=== PATIENT | female | born 1930 | race Caucasian/White ===

== ENCOUNTER 2017-01-26 21:46 | Inpatient (IN) | payer MEDICARE, OTHER ==
[~2017-01-26] VITALS: Ht 154.9 cm; Wt 54.0 kg
[~2017-01-26 21:46] MED LIST: ACET-2047 PO; ALLO100T PO; ASCO500C7 PO; BISA10SU58 PR; CITRACAL PO; CRAN3875 PO; DOCU-159 PO; FOLI-49 PO; LEVO100T87 PO; LYRI25 PO; MAGN400O4 PO; METO-448 PO; MIRT15TA PO; MULT-552 PO; NA P118E PR; PANT40TA4 PO
[2017-01-26 23:19] LABS: ABNORMAL IP MESSAGE 1; EOSINOPHILS # 0.1 10^3/ul (0.0-0.5); EOSINOPHILS % 1.6 % (0.0-7.0); HEMATOCRIT 22.8 % (37.0-47.0); HEMOGLOBIN 7.3 g/dl (12.0-16.0); LYMPHOCYTES # 0.8 10^3/ul (0.8-2.9); LYMPHOCYTES % 24.9 % (15.0-51.0); MEAN CORPUSCULAR HEMOGLOBIN 30.9 pg (29.0-33.0); MEAN CORPUSCULAR VOLUME 96.6 fl (82.0-101.0); MEAN PLATELET VOLUME 12.4 fl (7.4-10.4); MONOCYTE # 0.2 10^3/ul (0.3-0.9); MONOCYTES % 6.2 % (0.0-11.0); PLATELET COUNT 66 10^3/UL (140-415); POSITIVE DIFF @See below; RED BLOOD COUNT 2.36 10^6/ul (4.20-5.40); RED CELL DISTRIBUTION WIDTH 19.8 % (11.5-14.5); WHITE BLOOD COUNT 3.1 10^3/ul (4.8-10.8)
--- NOTE | 2017-01-26 23:26 | RADRPT ---
PROCEDURE: CHEST - 1 VIEW CLINICAL INDICATION: 86-year-old female with shortness of breath and sepsis. TECHNIQUE: A single frontal AP semi-erect view of the chest was performed. The images were review ed on a PACS workstation. COMPARISON: CR CHEST 02/21/2015; CR CHEST 02/17/2015 FINDINGS: There is a left-sided single lead pacemaker. The cardiomediastinal silhouette is markedly enlarged b ut without significant interval change. The thoracic aortic arch is calcified. Chronic lung changes are present. There is mild right pleural effusion. There is persistent right mid/lower lung zone con solidation. There is no evidence for congestive heart failure. There is no evidence for pneumothorax . Old bilateral humeral neck deformities are seen from prior fractures. IMPRESSION: 1. Left-sided pacemaker. 2. Cardiomegaly. 3. Calcified thoracic aortic arch. 4. Chronic lung changes. 5. Bbyw-ga-nmmnhpnt right pleural effusion. 6. Persistent right mid/lower lung zone consolidation without significant interval change. 7. 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 .Rui Garcia MD, MD Date Time Electronically viewed and signed by .Rui Garcia MD, on 01/26/2017 23:26 .M/
[2017-01-26 23:36] LABS: INR 1.08; PROTIME 14.1 Sec (11.9-14.9); PT RATIO 1.1
[2017-01-26 23:37] LABS: ALANINE AMINOTRANSFERASE 32 IU/L (13-69); ALBUMIN 2.8 g/dl (3.3-4.9); ALBUMIN/GLOBULIN RATIO 0.84; ALKALINE PHOSPHATASE 144 IU/L (42-121); ANION GAP 14 (8-16); ASPARTATE AMINO TRANSFERASE 28 IU/L (15-46); BILIRUBIN,INDIRECT 0.3 mg/dl (0-1.1); BILIRUBIN,TOTAL 0.3 mg/dl (0.2-1.3); BLOOD UREA NITROGEN 67 mg/dl (7-20); CARBON DIOXIDE 24 mmol/L (21-31); CHLORIDE 100 mmol/L (97-110); GLUCOSE 121 mg/dl (70-220); PARTIAL THROMBOPLASTIN TIME 41.1 Sec (25.0-35.0); SODIUM 132 mmol/L (135-144); TOTAL PROTEIN 6.1 g/dl (6.1-8.1)
[2017-01-26 23:45] LABS: POTASSIUM 6.2 mmol/L (3.5-5.1)
[2017-01-26 23:48] LABS: TROPONIN-I < 0.012 ng/ml (0.00-0.12)
[2017-01-27] VITALS (11 sets, daily range): BP systolic 104–141; BP diastolic 53–65; PULSE 60–89; RESP 19–21; TEMP 98; Ht 154.9 cm; Wt 54.0 kg
[2017-01-27] MEDS ORDERED: VANCOMYCIN 1 GM (PMX) 250 ML IVPB STA (00:39)
[2017-01-27] MEDS ORDERED: AZTREONAM 1 GM/NS (PMX) 50 ML IVPB STA (00:39)
[2017-01-27] MEDS ORDERED: NA POLYST SULFON 15 GM/60 ML BTL PO ONE (01:00)
--- NOTE | 2017-01-27 02:15 | ERD ---
ER Documentation Chief Complaint Chief Complaint HEMANT [id number],from [facility],low O2 sat 90% RA HPI This is an 78-year-old female brought in by rescue from [facility] of her low O2 saturations were 90% on room air. Patient herself cannot provide any relevant history second baseline dementia. History is per EMS run sheet. ROS All systems reviewed and are negative except as per history of present illness. Medications Home Meds Reported Medications Calcium Citrate* (Citracal*) 950 Mg Tab, 950 MG PO DAILY, TAB 02/17/15 Metoprolol Tartrate* (Lopressor*) 25 Mg Tab, 12.5 MG PO DAILY, TAB HOLD IF SBP<110 02/17/15 Cran/Vitc/Mannose/Inulin/Brom (Uti-Stat Liquid) 3,875 Mg/30 Ml Liquid, 3875 MG PO DAILY 02/17/15 Multivitamins* (Once Daily*) 1 Tab Tablet, 1 TAB PO DAILY, TAB 02/17/15 Pregabalin* (Lyrica*) 25 Mg Capsule, 25 MG PO DAILY, CAP 02/17/15 Pantoprazole* (Pantoprazole*) 40 Mg Tablet.dr, 40 MG PO AC BREAKFAST, TAB 02/17/15 Mirtazapine* (Remeron*) 15 Mg Tablet, 15 MG PO HS, TAB 02/17/15 Levothyroxine Sodium* (Levothyroxine Sodium*) 100 Mcg Tablet, 100 MCG PO BEFORE BREAKFAST, #30 TAB 02/17/15 Folic Acid* (Folic Acid*) 1 Mg Tablet, 1 MG PO DAILY, TAB 02/17/15 Docusate Sodium* (Docusate Sodium*) 100 Mg Capsule, 100 MG PO BID Y for CONSTIPATION, #60 CAP 02/17/15 Ascorbic Acid* (Vitamin C*) 500 Mg Capsule.sa, 500 MG PO DAILY, CAP 02/17/15 Allopurinol* (Allopurinol*) 100 Mg Tablet, 100 MG PO DAILY, TAB 02/17/15 Acetaminophen* (Acetaminophen*) 650 Mg Tablet, 650 MG PO Q4 Y for PAIN AND OR ELEVATED TEMP, #30 TAB 02/17/15 Na Phos,M-B/Na Phos,Di-Ba* (Fleet* Enema) 118 Ml Enema, 118 ML OK Q48H Y for CONSTIPATION, ENEMA 02/17/15 Bisacodyl* (Dulcolax*) 10 Mg/Supp.rect Supp.rect, 10 MG OK Q48 Y for CONSTIPATION, SUPP.RECT 02/17/15 Magnesium Hydroxide* (Milk Of Magnesia*) 400 Mg/5 Ml Oral.susp, 30 ML PO QHS, ML 02/17/15 Allergies Allergies: Coded Allergies: Penicillins (Verified Allergy, Unknown, 02/18/15) Sulfa (Sulfonamide Antibiotics) (Verified Allergy, Unknown, 02/18/15) amoxicillin (Verified Allergy, Unknown, 02/18/15) PMhx/Soc History of Surgery: Yes (pacemaker) Hx Neurological Disorder: No Hx Respiratory Disorders: Yes (COPD,pleural effusion) Hx Cardiac Disorders: Yes (HF,hyperlipidemia,angina pectoris) Hx Psychiatric Problems: Yes (depression,psychosis,dementia) Hx Alcohol Use: No Hx Substance Use: No Hx Tobacco Use: No Smoking Status: Unknown if ever smoked Physical Exam Vitals Vital Signs Date Time Temp Pulse Resp B/P Pulse Ox O2 Delivery O2 Flow Rate FiO2 01/27/17 00:00 60 21 107/60 100 Nasal Cannula 2.0 01/26/17 23:02 60 110/68 99 Nasal Cannula 2.0 01/26/17 22:04 60 24 117/55 100 Nasal Cannula 2.0 01/26/17 21:50 98.0 60 18 177/55 97 Room Air 01/26/17 21:48 98.0 67 18 133/69 99 Physical Exam Const: [] Head: Atraumatic Eyes: Normal Conjunctiva ENT: Normal External Ears, Nose and Mouth. Neck: Full range of motion..~ No meningismus. Resp: Clear to auscultation bilaterally Cardio: Regular rate and rhythm, no murmurs Abd: Soft, non tender, non distended. Normal bowel sounds Skin: No petechiae or rashes Back: No midline or flank tenderness Ext: No cyanosis, or edema Neur: Awake and alert Psych: Normal Mood and Affect Result Diagram: 01/26/17224401/26/172244 Results 24 hrs Laboratory Tests Test 01/26/17 22:45 01/27/17 00:39 White Blood Count 3.110^3/ul Red Blood Count 2.3610^6/ul Hemoglobin 7.3g/dl Hematocrit 22.8% Mean Corpuscular Volume 96.6fl Mean Corpuscular Hemoglobin 30.9pg Mean Corpuscular Hemoglobin Concent 32.0g/dl Red Cell Distribution Width 19.8% Platelet Count 6610^3/UL Mean Platelet Volume 12.4fl Neutrophils % 67.0% Lymphocytes % 24.9% Monocytes % 6.2% Eosinophils % 1.6% Basophils % 0.0% Nucleated Red Blood Cells % 0.0/100WBC Neutrophils # 2.010^3/ul Lymphocytes # 0.810^3/ul Monocytes # 0.210^3/ul Eosinophils # 0.110^3/ul Basophils # 0.010^3/ul Nucleated Red Blood Cells # 0.010^3/ul Prothrombin Time 14.1Sec Prothrombin Time Ratio 1.1 INR International Normalized Ratio 1.08 Activated Partial Thromboplast Time 41.1Sec Sodium Level 132mmol/L Potassium Level 6.2mmol/L Chloride Level 100mmol/L Carbon Dioxide Level 24mmol/L Anion Gap 14 Blood Urea Nitrogen 67mg/dl Creatinine 1.90mg/dl Glucose Level 121mg/dl Lactic Acid Level 2.0mmol/L 1.1mmol/L Calcium Level 9.0mg/dl Total Bilirubin 0.3mg/dl Direct Bilirubin 0.00mg/dl Indirect Bilirubin 0.3mg/dl Aspartate Amino Transf (AST/SGOT) 28IU/L Alanine Aminotransferase (ALT/SGPT) 32IU/L Alkaline Phosphatase 144IU/L Troponin I < 0.012ng/ml Total Protein 6.1g/dl Albumin 2.8g/dl Globulin 3.30g/dl Albumin/Globulin Ratio 0.84 Current Medications Medications (Trade) Dose Ordered Sig/Josh Route PRN Reason Start Time Stop Time Status Last Admin Dose Admin Vancomycin HCl 250 ml @ 125 mls/hr ONCE STAT IVPB 01/27/17 00:39 01/27/17 02:38 01/27/17 01:41 Aztreonam (Azactam 1gm/NS (Pmx)) 50 ml @ 100 mls/hr ONCE STAT IVPB 01/27/17 00:39 01/27/17 01:08 DC 01/27/17 01:05 Sodium Polystyrene Sulfonate (Kayexalate) 60 gm ONCE ONCE PO 01/27/17 01:00 01/27/17 01:01 DC Procedures/MDM EKG: Rate/Rhythm: [Normal Sinus Rhythm] QRS, ST, T-waves: [No changes consistent w/ acute ischemia] Impression: [No evidence of ischemia or arrhythmia] Chest X-ray 1V Interpreted by me: Soft Tissue: No acute abnormalities Bones: No acute abnormalities Mediastinum/Cardiac Silhouette/Lungs: Right lower lobe pneumonia Medical decision-makin-year-old female with hyperkalemia, anemia, pneumonia. Start antibiotics. Given fluids for hyperkalemia. No EKG changes. Patient be admitted to Dr Goodrich. Departure Diagnosis: Primary Impression: Pneumonia Pneumonia type: due to unspecified organism Laterality: unspecified laterality Lung location: unspecified part of lung Qualified Code: J18.9 - Pneumonia due to infectious organism, unspecified laterality, unspecified part of lung Condition: Serious KAYLEEN CROSS Jan 27, 2017 02:15
[2017-01-27] MEDS ORDERED: SOD CHLORIDE 0.9% 1,000 ML IV ONE (02:30)
[2017-01-27] MEDS ORDERED: SOD CHLORIDE 0.9% 250 ML IV* ONE (04:48)
[2017-01-27] MEDS ORDERED: ACETAMINOPHEN 325 MG TAB PO PRN (05:00)
[2017-01-27] MEDS ORDERED: DOCUSATE SODIUM 100 MG CAP PO PRN (05:00)
[2017-01-27 06:29] LABS: ABNORMAL IP MESSAGE 1; EOSINOPHILS % 0.2 % (0.0-7.0); HEMATOCRIT 22.2 % (37.0-47.0); HEMOGLOBIN 7.3 g/dl (12.0-16.0); LYMPHOCYTES # 0.6 10^3/ul (0.8-2.9); LYMPHOCYTES % 12.1 % (15.0-51.0); MEAN CORPUSCULAR HEMOGLOBIN 31.7 pg (29.0-33.0); MEAN CORPUSCULAR HGB CONC 32.9 g/dl (32.0-37.0); MEAN CORPUSCULAR VOLUME 96.5 fl (82.0-101.0); MEAN PLATELET VOLUME 11.7 fl (7.4-10.4); MONOCYTE # 0.3 10^3/ul (0.3-0.9); NEUTROPHIL # 3.7 10^3/ul (1.6-7.5); NEUTROPHILS % 81.3 % (39.0-77.0); PLATELET COUNT 60 10^3/UL (140-415); RED CELL DISTRIBUTION WIDTH 19.6 % (11.5-14.5); WHITE BLOOD COUNT 4.5 10^3/ul (4.8-10.8)
[2017-01-27] MEDS ORDERED: PENDING SANTYL ORDER FOR WOUND CARE XX PRN (06:30)
[2017-01-27 06:36] LABS: POSITIVE DIFF @See below
[2017-01-27] MEDS: DEXTROSE 5%-0.9% NACL 1,000 ML IV SCH (06:41)
[2017-01-27 07:01] LABS: CALCIUM 8.5 mg/dl (8.4-10.2); CREATININE 1.81 mg/dl (0.44-1.00)
[2017-01-27 07:09] LABS: POTASSIUM 6.2 mmol/L (3.5-5.1)
[2017-01-27] MEDS: LEVOTHYROXINE 100 MCG TAB PO SCH (08:09)
[2017-01-27] MEDS: FOLIC ACID 1 MG TAB PO SCH (08:09)
[2017-01-27] MEDS: PANTOPRAZOLE (EC) 40 MG TAB PO SCH (08:09)
[2017-01-27] MEDS: METOPROLOL 25 MG TAB PO SCH (08:09)
[2017-01-27] MEDS: ALLOPURINOL 100 MG TAB PO SCH (08:09)
[2017-01-27] MEDS: PREGABALIN 25 MG CAP PO SCH (08:09)
[2017-01-27] MEDS ORDERED: NA POLYST SULFON 15 GM/60 ML BTL PO SCH (09:00)
[2017-01-27] MEDS ORDERED: NON-FORMULARY/PATIENT OWN MED (Cran/Vitc/Mannose/Inulin/Brom (Uti-Stat Liquid) 3,875 MG) PO SCH (09:00)
--- NOTE | 2017-01-27 10:07 | CONS ---
Date/Time of Note Date/Time of Note DATE: 01/27/17 TIME: 10:04 Assessment/Plan Assessment/Plan Chief Complaint/Hosp Course - ACUTE KIDNEY INJURY - CHRONIC KIDNEY DISEASE - ACUTE HYPERKALEMIA - ACUTE vs CHRONIC ANEMIA - CAD / CHF / POST PACER - HIGH CHOLESTEROL - HYPOTHYROID - PANCYTOPENIA - SEPSIS / PNEUMONIA - MODERATE PLEURAL EFFUSION PLAN: - MARIA L secondary to decrease renal perfusion & ATN possible due to sepsis/ pneumonia - Acute Hyperkalemia secondary to above - So far she refused her Kayexalate PO - She is receiving PRBC 1 unit now ( which may increase her K+ as well ) - 1 Amp D50 - 10 units regular insulin IV x 1 - 1 Amp Bicarb. - IVF gentle - Recheck K+ at 12 PM & if K>5.7 then 30 Grams Kayexalate rectally since she is refusing PO - Work up for pancytopenia - Continue with IV Antibiotics - Start IV Iron - Start EPOGEN - Check Iron status THANK YOU VSharon MUCH Problems: Consultation Date/Type/Reason Admit Date/Time Jan 27, 2017 at 00:49 Date of Consultation: Jan 27, 2017 Type of Consultation: NEPHROLOGY Reason for Consultation - ACUTE KIDNEY INJURY - CHRONIC KIDNEY DISEASE - ACUTE HYPERKALEMIA - ACUTE ANEMIA Hx of Present Illness This is an 78-year-old female brought in by rescue from [place] [email or web address] of her low O2 saturations were 90% on room air. Patient herself cannot provide any relevant history second baseline dementia. Subjective hx not possible: pt non-verbal Constitutional: no complaints Eyes: no complaints ENT: no complaints Respiratory: no complaints Cardiovascular: no complaints Gastrointestinal: no complaints Genitourinary: no complaints Musculoskeletal: no complaints Skin: no complaints Past Medical History Medical History: congestive heart failure, coronary artery disease, high cholesterol, hypertension, renal disease Past Surgical History Past Surgical Hx: noncontributory Family History Significant Family History: no pertinent family hx Social History Alcohol Use: none Smoking Status: Never smoker Drug Use: none Exam/Review of Systems Vital Signs Vitals Vital Signs Date Time Temp Pulse Resp B/P Pulse Ox O2 Delivery O2 Flow Rate FiO2 01/27/17 08:24 60 01/27/17 07:37 97.4 20 141/65 97 01/27/17 05:11 Nasal Cannula 2.0 Exam Constitutional: non-verbal Psych: no complaints Head: normocephalic Respiratory: crackles/rales Cardiovascular: diastolic murmur, edema, systolic murmur Gastrointestinal: soft Results Result Diagram: 01/27/17 0609 01/27/17 0609 Results 24 hrs Laboratory Tests Test 01/26/17 22:45 01/27/17 00:39 01/27/17 02:00 01/27/17 02:40 White Blood Count 3.1 L Red Blood Count 2.36 #L Hemoglobin 7.3 #L Hematocrit 22.8 #L Mean Corpuscular Volume 96.6 Mean Corpuscular Hemoglobin 30.9 Mean Corpuscular Hemoglobin Concent 32.0 Red Cell Distribution Width 19.8 H Platelet Count 66 L Mean Platelet Volume 12.4 #H Neutrophils % 67.0 Lymphocytes % 24.9 Monocytes % 6.2 Eosinophils % 1.6 Basophils % 0.0 Nucleated Red Blood Cells % 0.0 Neutrophils # 2.0 Lymphocytes # 0.8 Monocytes # 0.2 L Eosinophils # 0.1 Basophils # 0.0 Nucleated Red Blood Cells # 0.0 Prothrombin Time 14.1 Prothrombin Time Ratio 1.1 INR International Normalized Ratio 1.08 Activated Partial Thromboplast Time 41.1 H Sodium Level 132 L Potassium Level 6.2 *H 6.4 *H Chloride Level 100 Carbon Dioxide Level 24 Anion Gap 14 Blood Urea Nitrogen 67 H Creatinine 1.90 H Glucose Level 121 Lactic Acid Level 2.0 1.1 1.0 Calcium Level 9.0 Total Bilirubin 0.3 Direct Bilirubin 0.00 Indirect Bilirubin 0.3 Aspartate Amino Transf (AST/SGOT) 28 Alanine Aminotransferase (ALT/SGPT) 32 Alkaline Phosphatase 144 H Troponin I < 0.012 Total Protein 6.1 Albumin 2.8 L Globulin 3.30 H Albumin/Globulin Ratio 0.84 Test 01/27/17 06:09 White Blood Count 4.5 #L Red Blood Count 2.30 L Hemoglobin 7.3 L Hematocrit 22.2 L Mean Corpuscular Volume 96.5 Mean Corpuscular Hemoglobin 31.7 Mean Corpuscular Hemoglobin Concent 32.9 Red Cell Distribution Width 19.6 H Platelet Count 60 L Mean Platelet Volume 11.7 H Neutrophils % 81.3 H Lymphocytes % 12.1 L Monocytes % 6.0 Eosinophils % 0.2 Basophils % 0.0 Nucleated Red Blood Cells % 0.0 Neutrophils # 3.7 Lymphocytes # 0.6 L Monocytes # 0.3 Eosinophils # 0.0 Basophils # 0.0 Nucleated Red Blood Cells # 0.0 Sodium Level 132 L Potassium Level 6.2 *H Chloride Level 102 Carbon Dioxide Level 23 Anion Gap 13 Blood Urea Nitrogen 68 H Creatinine 1.81 H Glucose Level 113 Calcium Level 8.5 Medications Medications Current Medications Acetaminophen (Tylenol Tab) 650 mg Q4 PRN PO PAIN AND OR ELEVATED TEMP; Start 01/27/17 at 05:00 Allopurinol (Zyloprim) 100 mg DAILY PO Last administered on 01/27/17 08:09; Admin Dose 100 MG; Start 01/27/17 at 09:00 Docusate Sodium (Colace) 100 mg BID PRN PO CONSTIPATION; Start 01/27/17 at 05: 00 Folic Acid (Folic Acid) 1 mg DAILY PO Last administered on 01/27/17 08:09; Admin Dose 1 MG; Start 01/27/17 at 09:00 Magnesium Hydroxide (Milk Of Mag) 30 ml QHS PO ; Start 01/27/17 at 21:00 Metoprolol Tartrate (Lopressor) 12.5 mg DAILY PO Last administered on 08:09; Admin Dose 12.5 MG; Start 01/27/17 at 09:00 Mirtazapine (Remeron) 15 mg HS PO ; Start 01/27/17 at 21:00 Pregabalin 25 mg 25 mg DAILY PO Last administered on 01/27/17 08:09; Admin Dose 25 MG; Start 01/27/17 at 09:00 Dextrose/Sodium Chloride (D5-NS) 1,000 ml @ 50 mls/hr Q20H IV Last administered on 01/27/17 06:41; Admin Dose 50 MLS/HR; Start 01/27/17 at 05:00 Sodium Polystyrene Sulfonate (Kayexalate) 30 gm BID PO Last administered on 08:08; Admin Dose 30 GM; Start 01/27/17 at 09:00 Miscellaneous Information (Pending Santyl Order For Wound Care) This patient easley... PRN PRN XX WOUND CARE; Start 01/27/17 at 06:30 FERNANDA JASON MD Jan 27, 2017 10:07
[2017-01-27] MEDS ORDERED: NA BICARBONATE 8.4% 50 ML SYG IV ONE (10:30)
[2017-01-27] MEDS ORDERED: NA POLYST SULFON 15 GM/60 ML BTL PR ONE (10:30)
[2017-01-27] MEDS ORDERED: DEXTROSE 50% 50 ML SYRINGE IV ONE (10:30)
[2017-01-27] MEDS ORDERED: INSULIN REGULAR, HUMAN 100 UNIT/1 ML 3ML VIAL IV ONE (10:30)
[2017-01-27] MEDS ORDERED: EPOETIN ALFA (NESRD) 3,000 UNITS/ML VIAL SC SCH (11:30)
[2017-01-27] MEDS: SOD FERRIC GLUC COMPLX 125 MG in SOD CHLORIDE 0.9% 100 ML IVPB SCH (12:56)
[2017-01-27 15:25] LABS: CALCIUM 8.6 mg/dl (8.4-10.2); CREATININE 1.75 mg/dl (0.44-1.00); POTASSIUM 5.4 mmol/L (3.5-5.1)
--- NOTE | 2017-01-27 16:13 | CONS ---
Date/Time of Note Date/Time of Note DATE: 01/27/17 TIME: 16:06 Assessment/Plan Assessment/Plan Chief Complaint/Hosp Course - PANCYTOPENIA with anemia N- cytic and increased RDW PROCEED WITH W-UP OBTAIN ABD US PER OLD RECORD- PT HAS A CHRONIC STABLE LEUKOPENIA AND THROMBOCYTOPENIA IN THE SAME RANGE NOW SINCE E 12. 15 ( HER FIRST ADMISSION TO [facility]) H/H - NOW SL WORSE OBSERVE FOR BLEEDING AND HEMOLYSIS PRBC NEEDED - ACUTE KIDNEY INJURY - CHRONIC KIDNEY DISEASE - ACUTE HYPERKALEMIA - ACUTE vs CHRONIC ANEMIA - CAD / CHF / POST PACER - HIGH CHOLESTEROL - HYPOTHYROID - SEPSIS / PNEUMONIA - MODERATE PLEURAL EFFUSION Problems: Consultation Date/Type/Reason Admit Date/Time Jan 27, 2017 at 00:49 Date of Consultation: Jan 27, 2017 Type of Consultation: hemeonc Reason for Consultation anemia Referring Provider: LUZ MARIA HERNÁNDEZ MD Hx of Present Illness This is an 78-year-old female brought in by rescue from [facility] of her low O2 saturations were 90% on room air. Patient herself cannot provide any relevant history second baseline dementia. i was asked to provide hemeonc consult re pancytopenia with anemia, requiring PRBC transfusion Subjective hx not possible: pt non-verbal Constitutional: no complaints Eyes: no complaints ENT: no complaints Respiratory: no complaints Cardiovascular: no complaints Gastrointestinal: no complaints Genitourinary: no complaints Musculoskeletal: no complaints Skin: no complaints Past Medical History Medical History: congestive heart failure, coronary artery disease, high cholesterol, hypertension, renal disease Past Surgical History Past Surgical Hx: noncontributory Family History Significant Family History: no pertinent family hx Social History Alcohol Use: none Smoking Status: Never smoker Drug Use: none Past Medical History Medical History: congestive heart failure, coronary artery disease, high cholesterol, hypertension, renal disease Past Surgical History Past Surgical Hx: noncontributory Social History Alcohol Use: none Smoking Status: Never smoker Drug Use: none Exam/Review of Systems Vital Signs Vitals Vital Signs Date Time Temp Pulse Resp B/P Pulse Ox O2 Delivery O2 Flow Rate FiO2 01/27/17 15:44 97.3 60 20 104/53 96 01/27/17 09:00 Nasal Cannula 2.0 Exam Head: Atraumatic Eyes: Normal Conjunctiva ENT: Normal External Ears, Nose and Mouth. Neck: Full range of motion..~ No meningismus. Resp: Clear to auscultation bilaterally Cardio: Regular rate and rhythm, no murmurs Abd: Soft, non tender, non distended. Normal bowel sounds Skin: No petechiae or rashes Back: No midline or flank tenderness Ext: No cyanosis, or edema Neur: Awake and alert Psych: Normal Mood and Affect Results Result Diagram: 01/27/17 0609 01/27/17 1427 Results 24 hrs Laboratory Tests Test 01/26/17 22:45 01/27/17 00:39 01/27/17 02:00 01/27/17 02:40 White Blood Count 3.1 L Red Blood Count 2.36 #L Hemoglobin 7.3 #L Hematocrit 22.8 #L Mean Corpuscular Volume 96.6 Mean Corpuscular Hemoglobin 30.9 Mean Corpuscular Hemoglobin Concent 32.0 Red Cell Distribution Width 19.8 H Platelet Count 66 L Mean Platelet Volume 12.4 #H Neutrophils % 67.0 Lymphocytes % 24.9 Monocytes % 6.2 Eosinophils % 1.6 Basophils % 0.0 Nucleated Red Blood Cells % 0.0 Neutrophils # 2.0 Lymphocytes # 0.8 Monocytes # 0.2 L Eosinophils # 0.1 Basophils # 0.0 Nucleated Red Blood Cells # 0.0 Prothrombin Time 14.1 Prothrombin Time Ratio 1.1 INR International Normalized Ratio 1.08 Activated Partial Thromboplast Time 41.1 H Sodium Level 132 L Potassium Level 6.2 *H 6.4 *H Chloride Level 100 Carbon Dioxide Level 24 Anion Gap 14 Blood Urea Nitrogen 67 H Creatinine 1.90 H Glucose Level 121 Lactic Acid Level 2.0 1.1 1.0 Calcium Level 9.0 Total Bilirubin 0.3 Direct Bilirubin 0.00 Indirect Bilirubin 0.3 Aspartate Amino Transf (AST/SGOT) 28 Alanine Aminotransferase (ALT/SGPT) 32 Alkaline Phosphatase 144 H Troponin I < 0.012 Total Protein 6.1 Albumin 2.8 L Globulin 3.30 H Albumin/Globulin Ratio 0.84 Test 01/27/17 06:09 01/27/17 14:27 White Blood Count 4.5 #L Red Blood Count 2.30 L Hemoglobin 7.3 L Hematocrit 22.2 L Mean Corpuscular Volume 96.5 Mean Corpuscular Hemoglobin 31.7 Mean Corpuscular Hemoglobin Concent 32.9 Red Cell Distribution Width 19.6 H Platelet Count 60 L Mean Platelet Volume 11.7 H Neutrophils % 81.3 H Lymphocytes % 12.1 L Monocytes % 6.0 Eosinophils % 0.2 Basophils % 0.0 Nucleated Red Blood Cells % 0.0 Neutrophils # 3.7 Lymphocytes # 0.6 L Monocytes # 0.3 Eosinophils # 0.0 Basophils # 0.0 Nucleated Red Blood Cells # 0.0 Sodium Level 132 L 134 L Potassium Level 6.2 *H 5.4 H Chloride Level 102 104 Carbon Dioxide Level 23 21 Anion Gap 13 14 Blood Urea Nitrogen 68 H 68 H Creatinine 1.81 H 1.75 H Glucose Level 113 101 Calcium Level 8.5 8.6 Medications Medications Current Medications Acetaminophen (Tylenol Tab) 650 mg Q4 PRN PO PAIN AND OR ELEVATED TEMP; Start 01/27/17 at 05:00 Allopurinol (Zyloprim) 100 mg DAILY PO Last administered on 01/27/17 08:09; Admin Dose 100 MG; Start 01/27/17 at 09:00 Docusate Sodium (Colace) 100 mg BID PRN PO CONSTIPATION; Start 01/27/17 at 05: 00 Folic Acid (Folic Acid) 1 mg DAILY PO Last administered on 01/27/17 08:09; Admin Dose 1 MG; Start 01/27/17 at 09:00 Magnesium Hydroxide (Milk Of Mag) 30 ml QHS PO ; Start 01/27/17 at 21:00 Metoprolol Tartrate (Lopressor) 12.5 mg DAILY PO Last administered on 08:09; Admin Dose 12.5 MG; Start 01/27/17 at 09:00 Mirtazapine (Remeron) 15 mg HS PO ; Start 01/27/17 at 21:00 Pregabalin 25 mg 25 mg DAILY PO Last administered on 01/27/17 08:09; Admin Dose 25 MG; Start 01/27/17 at 09:00 Dextrose/Sodium Chloride (D5-NS) 1,000 ml @ 50 mls/hr Q20H IV Last administered on 01/27/17 06:41; Admin Dose 50 MLS/HR; Start 01/27/17 at 05:00 [facility] This patient easley... PRN PRN XX WOUND CARE; Start 01/27/17 at 06:30 Epoetin Rhys 6000 units 6,000 units ONCE SC Last administered on 01/27/17t 12: 56; Admin Dose 6,000 UNITS; Start 01/27/17 at 11:30; Stop 01/27/17 at 23:00 Ferric Sodium Gluconate Complex/ Sodium Chloride (Ferrlecit/NS) 110 ml @ 100 mls/hr Q24H IVPB Last administered on 01/27/17t 12:56; Admin Dose 100 MLS/HR; Start 01/27/17 at 12:00; Stop 01/29/17 at 13:05 Procedures Procedures [place] [address] Radiology Main Line: [phone] DIAGNOSTIC IMAGING REPORT Patient: ROBERT LYNN : 1930 Age: 86 Sex: F MR #: [id number] DOS: 01/26/17 2222 Ordering MD: KAYLEEN CROSS MD Location: E/R Room/Bed: PROCEDURE: CHEST - 1 VIEW CLINICAL INDICATION: 86-year-old female with shortness of breath and sepsis. TECHNIQUE: A single frontal AP semi-erect view of the chest was performed. The images were reviewed on a PACS workstation. COMPARISON: CR CHEST 02/21/2015; CR CHEST 02/17/2015 FINDINGS: There is a left-sided single lead pacemaker. The cardiomediastinal silhouette is markedly enlarged but without significant interval change. The thoracic aortic arch is calcified. Chronic lung changes are present. There is mild right pleural effusion. There is persistent right mid/lower lung zone consolidation. There is no evidence for congestive heart failure. There is no evidence for pneumothorax. Old bilateral humeral neck deformities are seen from prior fractures. IMPRESSION: 1. Left-sided pacemaker. 2. Cardiomegaly. 3. Calcified thoracic aortic arch. 4. Chronic lung changes. 5. [id number]-[id number] right pleural effusion. 6. Persistent right mid/lower lung zone consolidation without significant interval change. 7. 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 .Rui Garcia MD, MD Date Time Electronically viewed and signed by .Rui Garcia MD, MD on 01/26/2017 23:26 .M/ CC: KAYLEEN CROSS VERA M MD Jan 27, 2017 16:13
[2017-01-27 17:34] LABS: URIC ACID 4.4 mg/dl (3.1-7.9)
[2017-01-27] MEDS ORDERED: MAGNESIUM HYDROXIDE 30ML CUP PO SCH (21:00)
[2017-01-27] MEDS ORDERED: MIRTAZAPINE 15 MG TAB PO SCH (21:00)
[2017-01-28] VITALS (10 sets, daily range): BP systolic 91–118; BP diastolic 50–63; PULSE 59–60; RESP 14–20
[2017-01-28] MEDS: DEXTROSE 5%-0.9% NACL 1,000 ML IV SCH (01:35)
[2017-01-28] MEDS: LEVOTHYROXINE 100 MCG TAB PO SCH ×2 (06:43→09:06)
[2017-01-28 06:47] LABS: ABNORMAL IP MESSAGE 1; EOSINOPHILS % 1.3 % (0.0-7.0); HEMATOCRIT 25.4 % (37.0-47.0); HEMOGLOBIN 8.3 g/dl (12.0-16.0); LYMPHOCYTES # 0.6 10^3/ul (0.8-2.9); LYMPHOCYTES % 26.1 % (15.0-51.0); MEAN CORPUSCULAR HEMOGLOBIN 30.9 pg (29.0-33.0); MEAN CORPUSCULAR HGB CONC 32.7 g/dl (32.0-37.0); MEAN CORPUSCULAR VOLUME 94.4 fl (82.0-101.0); MEAN PLATELET VOLUME 11.5 fl (7.4-10.4); MONOCYTE # 0.1 10^3/ul (0.3-0.9); MONOCYTES % 4.8 % (0.0-11.0); NEUTROPHIL # 1.6 10^3/ul (1.6-7.5); NEUTROPHILS % 67.4 % (39.0-77.0); RED BLOOD COUNT 2.69 10^6/ul (4.20-5.40); RED CELL DISTRIBUTION WIDTH 19.2 % (11.5-14.5); WHITE BLOOD COUNT 2.3 10^3/ul (4.8-10.8)
[2017-01-28 06:55] LABS: IRON 225 ug/dl (35-150)
[2017-01-28 07:01] LABS: PLATELET COUNT 56 10^3/UL (140-415); POSITIVE DIFF @See below
[2017-01-28 07:05] LABS: TOTAL IRON BINDING CAPACITY 265 ug/dl (241-421)
[2017-01-28 07:08] LABS: ALBUMIN 2.9 g/dl (3.3-4.9); ALBUMIN/GLOBULIN RATIO 0.93; BILIRUBIN,INDIRECT 0.3 mg/dl (0-1.1); BILIRUBIN,TOTAL 0.3 mg/dl (0.2-1.3); CALCIUM 8.5 mg/dl (8.4-10.2); CREATININE 1.82 mg/dl (0.44-1.00); POTASSIUM 5.3 mmol/L (3.5-5.1)
[2017-01-28 07:27] LABS: CARCINOEMBRYONIC ANTIGEN 5.9 ng/ml (0.0-5.0)
--- NOTE | 2017-01-28 07:48 | CONS ---
Date/Time of Note Date/Time of Note DATE: 01/28/17 TIME: 07:44 Assessment/Plan Assessment/Plan Chief Complaint/Hosp Course - ACUTE KIDNEY INJURY - CHRONIC KIDNEY DISEASE - ACUTE HYPERKALEMIA - ACUTE vs CHRONIC ANEMIA - CAD / CHF / POST PACER - HIGH CHOLESTEROL - HYPOTHYROID - PANCYTOPENIA - SEPSIS / PNEUMONIA - MODERATE PLEURAL EFFUSION PLAN: - MARIA L secondary to decrease renal perfusion & ATN possible due to sepsis/ pneumonia - Acute Hyperkalemia secondary to above - Improving - [place]qa[place] IRON - Cont. EPOGEN THANK YOU VSharon YBARRA Problems: Consultation Date/Type/Reason Admit Date/Time Jan 27, 2017 at 00:49 Initial Consult Date 01/27/17 Type of Consultation: NEPHROLOGY Reason for Consultation - MARIA L - HYPERKALEMIA Referring Provider: LUZ MARIA HERNÁNDEZ MD 24 HR Interval Summary Constitutional: improved, no complaints Exam/Review of Systems Vital Signs Vitals Vital Signs Date Time Temp Pulse Resp B/P Pulse Ox O2 Delivery O2 Flow Rate FiO2 01/28/17 04:26 98.5 65 18 110/63 98 01/27/17 20:00 Nasal Cannula 2.0 Intake and Output 01/27/17 01/27/17 01/28/17 15:00 23:00 07:00 Intake Total 110 ml 950 ml Balance 110 ml 950 ml Exam Constitutional: well developed Respiratory: crackles/rales Cardiovascular: systolic murmur Gastrointestinal: soft Results Result Diagram: 01/28/17 0553 01/28/17 0553 Results 24 hrs Laboratory Tests Test 01/27/17 14:27 01/27/17 16:35 01/28/17 05:53 01/28/17 06:33 Sodium Level 134 L 136 Potassium Level 5.4 H 5.3 H Chloride Level 104 105 Carbon Dioxide Level 21 23 Anion Gap 14 13 Blood Urea Nitrogen 68 H 64 H Creatinine 1.75 H 1.82 H Glucose Level 101 96 Calcium Level 8.6 8.5 Absolute Reticulocyte Count 0.047 Percent Reticulocyte Count 2.0 H Uric Acid 4.4 Vitamin B12 Level > 1000 H Thyroid Stimulating Hormone (TSH) 151.000 H White Blood Count 2.3 #L Red Blood Count 2.69 L Hemoglobin 8.3 L Hematocrit 25.4 L Mean Corpuscular Volume 94.4 Mean Corpuscular Hemoglobin 30.9 Mean Corpuscular Hemoglobin Concent 32.7 Red Cell Distribution Width 19.2 H Platelet Count 56 L Mean Platelet Volume 11.5 H Neutrophils % 67.4 Lymphocytes % 26.1 Monocytes % 4.8 Eosinophils % 1.3 Basophils % 0.0 Nucleated Red Blood Cells % 0.0 Neutrophils # 1.6 Lymphocytes # 0.6 L Monocytes # 0.1 L Eosinophils # 0.0 Basophils # 0.0 Nucleated Red Blood Cells # 0.0 Iron Level 225 H Total Iron Binding Capacity 265 Percent Iron Saturation 85 H Ferritin Pending Total Bilirubin 0.3 Direct Bilirubin 0.00 Indirect Bilirubin 0.3 Aspartate Amino Transf (AST/SGOT) 29 Alanine Aminotransferase (ALT/SGPT) 36 Alkaline Phosphatase 140 H Total Protein 6.0 L Albumin 2.9 L Globulin 3.10 Albumin/Globulin Ratio 0.93 Carcinoembryonic Antigen 5.9 H Folate Pending Lab Scanned Report BLOOD TRANSFUSION Medications Medications Current Medications Acetaminophen (Tylenol Tab) 650 mg Q4 PRN PO PAIN AND OR ELEVATED TEMP; Start 01/27/17 at 05:00 Allopurinol (Zyloprim) 100 mg DAILY PO Last administered on 01/27/17 08:09; Admin Dose 100 MG; Start 01/27/17 at 09:00 Docusate Sodium (Colace) 100 mg BID PRN PO CONSTIPATION; Start 01/27/17 at 05: 00 Folic Acid (Folic Acid) 1 mg DAILY PO Last administered on 01/27/17 08:09; Admin Dose 1 MG; Start 01/27/17 at 09:00 Magnesium Hydroxide (Milk Of Mag) 30 ml QHS PO Last administered on 01/27/17 21:12; Admin Dose 30 ML; Start 01/27/17 at 21:00 Metoprolol Tartrate (Lopressor) 12.5 mg DAILY PO Last administered on 08:09; Admin Dose 12.5 MG; Start 01/27/17 at 09:00 Mirtazapine (Remeron) 15 mg HS PO Last administered on 01/27/17 21:12; Admin Dose 15 MG; Start 01/27/17 at 21:00 Pregabalin 25 mg 25 mg DAILY PO Last administered on 01/27/17 08:09; Admin Dose 25 MG; Start 01/27/17 at 09:00 Dextrose/Sodium Chloride (D5-NS) 1,000 ml @ 50 mls/hr Q20H IV Last administered on 01/28/17 01:35; Admin Dose 50 MLS/HR; Start 01/27/17 at 05:00 Miscellaneous Information This patient easley... PRN PRN XX WOUND CARE; Start 01/27 at 06:30 Ferric Sodium Gluconate Complex/ Sodium Chloride (Ferrlecit/NS) 110 ml @ 100 mls/hr Q24H IVPB Last administered on 01/27/17 12:56; Admin Dose 100 MLS/HR; Start 01/27/17 at 12:00; Stop 01/29/17 at 13:05 FERNANDA JASON MD Jan 28, 2017 07:48
--- NOTE | 2017-01-28 08:03 | HP ---
DATE OF ADMISSION: 01/27/2017 ADMITTING DIAGNOSES: 1. Acute respiratory failure. 2. Acute kidney injury. 3. Hyperkalemia. 4. Uhulc-le-hfhgyrt anemia, possible myelodysplastic disorder. 5. Coronary artery disease with chronic congestive heart failure, status post pacemaker. 6. Hypothyroidism. 7. Dementia with behavior. 8. chronic and persistent pleural effusion. SUMMARY: The patient is an 86-year-old female admitted to the hospital for overnight by healthcare after the nurse claimed that she became desaturated and rushed to the emergency room her satur ation was 98% room air. Nurse claimed that she has bowel movements with blood. Evaluated in the em ergency room, admitted for further management and workup. The patient awake, confused, disoriented and no physical complaint by her. ALLERGIES: THE PATIENT IS ALLERGIC TO: 1. PENICILLIN. 2. SULFA. 3. SULFONAMIDE. 4. ANTIBIOTICS. 5. AMOXICILLIN. HABITS: Not a smoker, drinker or drug abuser. FAMILY HISTORY: Unremarkable. PAST SURGICAL HISTORY: History of pacemaker insertion. PAST MEDICAL HISTORY: The patient has history of vascular dementia with behavioral disturbances, hi story of coronary artery disease, cardiomyopathy, CHF, pacemaker implantation, dyspepsia, hist ory of GERD, acute renal failure history, recent depression, hypothyroidism, angina pectoris, osteoa rthritis, osteoporosis, difficulty walking, sleep disorder, constipation, dyslipidemia and then anem ia, thrombocytopenia, then history of sepsis, and then coagulopathy and then history of hyperkalemia , and then chronic anemia, myelodysplastic syndrome disorder with platelet count in the 60s now and then difficulty walking. MEDICATIONS: Patient currently on: 1. Megace 20 mL at bedtime. 2. Remeron 15 mg at bedtime. 3. Epogen 6000 once a week. 4. 100 mg once a day. 5. Folic acid 1 mg daily. 6. Metoprolol 12.5 mg daily. 7. Lasix 25 mg b.i.d. 8. Protonix 40 mg once a day. 9. Levoxyl 100 mg once a day. 10. Tylenol 650 q.4 hours p.r.n. 11. Colace 100 mg b.i.d. REVIEW OF SYSTEMS: GASTROINTESTINAL: No history of upper or lower GI bleeding. No history of liver disease, but recur rent external hemorrhoids with bleeding from thrombocytopenia and chronic anemia. RESPIRATORY: Patient has COPD, chronic pleural effusion, cardiomegaly, cardiomyopathy, recurrent CH F. No pulmonary tuberculosis or hemoptysis. CARDIOVASCULAR: Cardiomyopathy with pacemaker implanted, with cardiac arrhythmia and heart bl ock history, with cardiomegaly and recurrent CHF, persistent pleural effusion, mild . GENITOURINARY: Incontinent of urine. No dysuria, hematuria, recurrent UTI chronic renal fail ure with recurrent acute exacerbation with hyperkalemia. MUSCULOSKELETAL: Advanced osteoarthritis of spine and lower extremities with difficulty walking wit h osteoporosis. NEUROLOGIC: The patient has vascular dementia with behavior change, peripheral neuropathy and weakn ess in the extremities with numbness. SKIN: No urticaria, dermatitis, multiple in the body. ENDOCRINE: Patient had hypothyroidism. No diabetes mellitus. SKIN: Multiple in the face and the extremities. No decubitus. CONSTITUTIONAL: The patient has history of hyperlipidemia and a chronic imbalance. PHYSICAL EXAMINATION: GENERAL: The patient is awake, calm, looks stated age. VITAL SIGNS: On admission shows a temperature 97.4, pulse 64, respirations 20, blood pressure 141/6 5, pulse ox 97% on 2 liters. HEAD: Normocephalic, atraumatic. Pupils equal, reactive to light, normal to accommodation . Facial skin and scalp within normal limits. Throat clear. No sign of acute infection seen. NECK: Supple, trachea central. No thyroid enlargement. No cervical lymphadenopathy. Carotid puls e normal. No jugular venous distention. CHEST: Normal contour. Normal expansion. Pacemaker in the left side, intact skin. HEART: Cardiomegaly with PMI localized at midclavicular line, fifth intercostal space with sy stolic murmur heard in the apex with cardiomegaly by percussion. BREASTS: Atrophy. No muscle retraction. No nipple discharge. No tenderness. No enlargement. ABDOMEN: Umbilicus central. No organomegaly. No tenderness or rebound tenderness. Bowel sounds p ositive. GENITALIA: External genitalia within normal limits. Vaginal and rectal examination, the patient re fused. EXTREMITIES: Upper and lower extremities normally shaped . Muscle atrophy with stiffness of t he large joints, especially the knees and unable to stand, but able to sit with normal range of chema on . NEUROLOGIC: The patient awake, confused, disoriented normally, no pain or discomfort. Disori ented. PLAN: Patient admitted to the hospital. We will ask DrSharon in nephrology consult for her acute renal failure and hyperkalemia. Meanwhile, continue IV fluids pending her , and then we will a sk Dr. Anna in hematology consult for myelodysplastic disorder and thrombocytopenia and anemia and further workup. blood transfusion 1 unit now, and then we will monitor her vital signs. We will ask Dr. Franklin in cardiology consult for pacemaker and cardiomyopathy. Hemoglobin was 7.3, WBC was 3.1 and platelets were 66 on admission. Chemistry shows potassium 6.4 and BUN was 68, crea tinine 1.8 and lactic acid normal. Chest x-ray shows persistent right-sided pleural effusion. The patient will be monitored , we will give her diet, renal diet and we will follow up. PROGNOSIS: Fair to guarded. CODE STATUS: FULL CODE. Discussed her condition with her son, Cipriano Coon, and his phone is . Prognosis is fair to guarded. Code status: FULL CODE. We will followup. Dictated By: LUZ MARIA MCDERMOTT/ERICKA Conf#: [id number] DID#: [id number]
[2017-01-28 08:15] LABS: FOLATE 5.4 ng/ml (2.8-20.0)
[2017-01-28] MEDS: METOPROLOL 25 MG TAB PO SCH (09:00)
[2017-01-28] MEDS: PREGABALIN 25 MG CAP PO SCH (09:03)
[2017-01-28] MEDS: PANTOPRAZOLE (EC) 40 MG TAB PO SCH (09:05)
[2017-01-28] MEDS: FOLIC ACID 1 MG TAB PO SCH (09:05)
[2017-01-28] MEDS: ALLOPURINOL 100 MG TAB PO SCH (09:06)
--- NOTE | 2017-01-28 09:20 | RADRPT ---
PROCEDURE: US Abdomen CLINICAL INDICATION: PAIN, PANCYTOPENIA TECHNIQUE: Multiple real-time images were acquired of the patient's abdomen and retroperitoneum ut ilizing a high resolution transducer. COMPARISON: None FINDINGS: The liver measures 10.7 cm and demonstrates coarsened echotexture and a lobulated contour. There is no intrahepatic biliary ductal dilatation. The extrahepatic common bile duct is not visualized. The main portal vein is not evaluated. The gallbladder is not evaluated. The pancreas is not visualized. The visualized abdominal aorta and IVC are grossly unremarkable. IMPRESSION: Markedly limited study due to pain which demonstrates a hypoplastic liver with coarsened echotexture and a lobulated contour suggestive of cirrhosis. The main portal vein is not evaluated. RPTAT: EE Physician Geri Date Time Electronically viewed and signed by Physician Geri on 01/28/2017 09:20 /
[2017-01-28] MEDS ORDERED: MUPIROCIN 2% 22 GM OINT TOP SCH (10:30)
[2017-01-28] MEDS: SOD FERRIC GLUC COMPLX 125 MG in SOD CHLORIDE 0.9% 100 ML IVPB SCH (11:36)
[2017-01-28] MEDS ORDERED: FUROSEMIDE 40 MG INJ IV ONE (12:00)
[2017-01-28] MEDS ORDERED: FUROSEMIDE (10 MG/ML) IV SYG IV ONE (12:00)
--- NOTE | 2017-01-28 13:44 | PDOCDIS ---
Discharge Instructions CONDITION Patient Condition: Fair HOME CARE INSTRUCTIONS: Diet Instructions: Special Diet: PUREED ACTIVITY: Activity Restrictions: Slowly Increase Activity Bathing Restrictions: Shower SCHOOL/WORK RELEASE May return to School/Work on: Jan 28, 2017 May return to School/Work with: LUZ MARIA HERNÁNDEZ MD Jan 28, 2017 13:44
--- NOTE | 2017-01-28 15:54 | DS ---
DATE OF ADMISSION: 01/27/2017 DATE OF DISCHARGE: 01/28/2017 ADMITTING DIAGNOSES: 1. Acute renal failure. 2. Acute dehydration. 3. Acute anemia on chronic. 4. Myelodysplastic disorder. 5. Vascular dementia. 6. Hypothyroidism. 7. Liver cirrhosis. Severe hyperkalemia 8. Thrombocytopenia. DISCHARGE DIAGNOSES: 1. Acute renal failure. 2. Acute dehydration. 3. Acute anemia on chronic. 4. Myelodysplastic disorder. 5. Vascular dementia. 6. Hypothyroidism. 7. Liver cirrhosis. Severe hyperkalemia 8. Thrombocytopenia. PRINCIPAL PROCEDURE: Blood transfusion of 1 unit on IV fluid hydration. CONSULTATIONS: Dr. Pack nephrology consult and Dr. Anna in a hematology consult. SUMMARY: The patient is an 86-year-old female admitted to the hospital secondary to her hyperkalemi a, acute respiratory failure, chronic renal failure with anemia. Her WBC on admission was 3.1, went down 2.3 from her myelodysplastic disorder. Hemoglobin was 7.3 went up to 8.3, platelet count was 60, stays the same thing, reticulocyte count is 2.0. The patient's potassium on admission was 5.4, went down to 5.3. The patient was using oral medication ok Kayexalate with D5 fluid. BUN 68 went d own to 64, creatinine 1.71 to 1.8, which is chronic. Ferritin level was 281, high and then his satu ration iron 85 and then iron is 225 high. Albumin low 6 and TSH was 151. CA is 5.9. The elevated Folic acid was 5.1. Patient had a chest x-ray that shows a left side pacemaker, cardiomegaly, and c alcified thoracic aortic arch, chronic lung changes, right pleural effusion chronic, right ____ lowe r lung zone consolidation chronic. Abdominal ultrasound shows liver cirrhosis. 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 Bactroban was started. Blood culture was negative. PHYSICAL EXAMINATION: GENERAL: The patient is awake, calm, looks stated age. No shortness breath or cough. VITAL SIGNS: Today show temperature 98.5, pulse 59, respirations 16, blood pressure 105/50, pulse o ximetry 97% on 2 liters nasal cannula. HEENT: Head normocephalic, atraumatic. Pupils equal, react to light and accommodation. Sclerae an icteric. Extraocular movements normal limits. Throat clear. No sign of acute infection seen. Fac ial skin and scalp within normal limits. NECK: Supple. Trachea central. No thyroid enlargement, no cervical lymphadenopathy. Carotid puls e normal. No jugular venous distention. CHEST: Normal contour, normal inspiration and expiration. Lungs clear to auscultation and percussi on. HEART: Regular sinus rhythm. No rub. A systolic murmur ____ stenosis with pacemaker on the left s camryn. ABDOMEN: Umbilicus central. No organomegaly. No tenderness or rebound tenderness. Bowel sounds p ositive. Patient able to eat. Good bowel movement and urination. Incontinent of urine. EXTREMITIES: Upper and lower extremities ____, contracted knee and the spine. Muscle weakness, bed ridden. NEUROLOGIC: The patient is awake, confused, disoriented, not in pain or shortness of breath. PLAN: The patient will be discharged to [facility]. Will continue her medication of Barrera yl for the wound, Bactroban for the nares twice a day, milk of magnesia 30 mL daily, Remeron 15 mg a t bedtime, allopurinol 100 mg once a day, folic acid 1 mg daily, Lopressor 12.5 mg twice a day, Lyri ca 25 mg daily, Protonix 40 mg once a day, Levoxyl 100 mg once a day, we will increase it in the zena sing home with Tylenol p.r.n. 650. We will followup. PROGNOSIS: Fair to guarded. CODE STATUS: NO CODE, NO CPR. Dictated By: LUZ MARIA MCDERMOTT/ERICKA Conf#: [id number] DID#: [id number]
--- NOTE | 2017-01-28 20:41 | CONS ---
Date/Time of Note Date/Time of Note DATE: 01/28/17 TIME: 11:34 VK LE Assessment/Plan Assessment/Plan Chief Complaint/Hosp Course - PANCYTOPENIA with anemia N- cytic and increased RDW COMPLETE W-UP ABD US- LIVER CIRRHOSIS PER OLD RECORD- PT HAS A CHRONIC STABLE LEUKOPENIA AND THROMBOCYTOPENIA IN THE SAME RANGE NOW SINCE E 12 15 ( HER FIRST ADMISSION TO [facility]) H/H - SL WORSE OBSERVE FOR BLEEDING AND HEMOLYSIS PRBC NEEDED LIVER CIRRHOSIS - BASED ON US REPORT - ACUTE KIDNEY INJURY - CHRONIC KIDNEY DISEASE - ACUTE HYPERKALEMIA - CAD / CHF / POST PACER - HIGH CHOLESTEROL - HYPOTHYROID - SEPSIS / PNEUMONIA - MODERATE PLEURAL EFFUSION OK TO DC WILL D/W DR DARLING Problems: Consultation Date/Type/Reason Admit Date/Time Jan 27, 2017 at 00:49 Initial Consult Date 01/27/17 Type of Consultation: HEMEON Referring Provider: LUZ MARIA HERNÁNDEZ MD 24 HR Interval Summary Free Text/Dictation ALL NOTED POST 1 U PRBC NO BLEEDING NO HEMOLYSIS Exam/Review of Systems Vital Signs Vitals Vital Signs Date Time Temp Pulse Resp B/P Pulse Ox O2 Delivery O2 Flow Rate FiO2 01/28/17 16:09 60 01/28/17 15:52 14 118/56 95 01/28/17 09:00 Nasal Cannula 2.0 01/28/17 04:26 98.5 Intake and Output 01/27/17 01/27/17 01/28/17 15:00 23:00 07:00 Intake Total 110 ml 950 ml Balance 110 ml 950 ml Exam GENERAL: The patient is awake, calm, looks stated age. No shortness breath or cough. HEENT: Head normocephalic, atraumatic. Pupils equal, react to light and accommodation. Sclerae anicteric. Extraocular movements normal limits. Throat clear. No sign of acute infection seen. Facial skin and scalp within normal limits. NECK: Supple. Trachea central. No thyroid enlargement, no cervical lymphadenopathy. Carotid pulse normal. No jugular venous distention. CHEST: Normal contour, normal inspiration and expiration. Lungs clear to auscultation and percussion. HEART: Regular sinus rhythm. No rub. A systolic murmur ____ stenosis with pacemaker on the left side. ABDOMEN: Umbilicus central. No organomegaly. No tenderness or rebound tenderness. Bowel sounds positive. Patient able to eat. Good bowel movement and urination. Incontinent of urine. EXTREMITIES: Upper and lower extremities ____, contracted knee and the spine. Muscle weakness, bedridden. NEUROLOGIC: The patient is awake, confused, disoriented, not in pain or shortness of breath. Results Result Diagram: 01/28/17 0553 01/28/17 0553 Results 24 hrs Laboratory Tests Test 01/28/17 05:53 01/28/17 06:33 White Blood Count 2.3 #L Red Blood Count 2.69 L Hemoglobin 8.3 L Hematocrit 25.4 L Mean Corpuscular Volume 94.4 Mean Corpuscular Hemoglobin 30.9 Mean Corpuscular Hemoglobin Concent 32.7 Red Cell Distribution Width 19.2 H Platelet Count 56 L Mean Platelet Volume 11.5 H Neutrophils % 67.4 Lymphocytes % 26.1 Monocytes % 4.8 Eosinophils % 1.3 Basophils % 0.0 Nucleated Red Blood Cells % 0.0 Neutrophils # 1.6 Lymphocytes # 0.6 L Monocytes # 0.1 L Eosinophils # 0.0 Basophils # 0.0 Nucleated Red Blood Cells # 0.0 Sodium Level 136 Potassium Level 5.3 H Chloride Level 105 Carbon Dioxide Level 23 Anion Gap 13 Blood Urea Nitrogen 64 H Creatinine 1.82 H Glucose Level 96 Calcium Level 8.5 Iron Level 225 H Total Iron Binding Capacity 265 Percent Iron Saturation 85 H Ferritin 281.0 H Total Bilirubin 0.3 Direct Bilirubin 0.00 Indirect Bilirubin 0.3 Aspartate Amino Transf (AST/SGOT) 29 Alanine Aminotransferase (ALT/SGPT) 36 Alkaline Phosphatase 140 H Total Protein 6.0 L Albumin 2.9 L Globulin 3.10 Albumin/Globulin Ratio 0.93 Carcinoembryonic Antigen 5.9 H Folate 5.4 Lab Scanned Report BLOOD TRANSFUSION Procedures Procedures [place] [address] Radiology Main Line: [phone] DIAGNOSTIC IMAGING REPORT Patient: ROBERT LYNN : 1930 Age: 86 Sex: F MR #: [id number] DOS: 01/28/17 0700 Ordering MD: LINSEY BORREGO MD Location: [facility] Room/Bed: 524-A PROCEDURE: US Abdomen CLINICAL INDICATION: PAIN, PANCYTOPENIA TECHNIQUE: Multiple real-time images were acquired of the patient's abdomen and retroperitoneum utilizing a high resolution transducer. COMPARISON: None FINDINGS: The liver measures 10.7 cm and demonstrates coarsened echotexture and a lobulated contour. There is no intrahepatic biliary ductal dilatation. The extrahepatic common bile duct is not visualized. The main portal vein is not evaluated. The gallbladder is not evaluated. The pancreas is not visualized. The visualized abdominal aorta and IVC are grossly unremarkable. IMPRESSION: Markedly limited study due to pain which demonstrates a hypoplastic liver with coarsened echotexture and a lobulated contour suggestive of cirrhosis. The main portal vein is not evaluated. RPTAT: EE Physician Geri Date Time Electronically viewed and signed by Physician Geri on 01/28/2017 09:20 RA/ CC: LINSEY BORREGO MD, VERA M MD Jan 28, 2017 20:41
[2017-01-29 01:36] LABS: PROTEIN, TOTAL 5.6 g/dL (6.1-8.1)
--- NOTE | 2017-01-29 07:39 | CONS ---
DATE OF ADMISSION: 01/27/2017 DATE OF CONSULTATION: 01/28/2017 CARDIOLOGY CONSULTATION REFERRING PHYSICIAN: Dr. Hernández. REASON FOR EVALUATION: Pacemaker, atrial fibrillation, hypertension, shortness of breath. HISTORY OF PRESENT ILLNESS: Ms. Coon is an 86-year-old woman known to me from prior admission wi th history of hypertension, dyslipidemia, history of coronary artery disease, history of atrial fibr illation, history of pacemaker, who comes to the hospital now for evaluation of shortness of breath. I have been asked to see the patient in consultation because of her cardiac history. It appears t hat the patient is in some degree of heart failure at the moment. She is in atrial fibrillation wit h appropriate pacemaker function. The patient is not presently providing any good history at this p articular point. For now, conservative measures. We will diurese the patient gently if she can abbe erate it. We will monitor her anticoagulation status. There appears to be appropriate pacemaker fu nction. We will see if patient has been checked recently. PAST MEDICAL HISTORY: 1. Hypertension. 2. Dyslipidemia. 3. History of coronary artery disease. 4. History of chronic debilitated state. 5. History of dementia. 6. History of atrial fibrillation. 7. History of pacemaker placement. ALLERGIES: THE PATIENT IS ALLERGIC TO: 1. PENICILLIN. 2. SULFA ANTIBIOTICS. 3. AMOXICILLIN. SOCIAL HISTORY: The patient does not smoke, does not drink, does not use drugs. FAMILY HISTORY: Negative for sudden cardiac or premature coronary artery disease. MEDICATIONS: The patient is on: 1. Fentanyl. 2. Magnesium. 3. . 4. Allopurinol 100 mg p.o. b.i.d. 5. Folic acid. 6. Metoprolol 12.5 mg. 7. . 8. Pantoprazole 9. Levothyroxine. 9. Docusate. REVIEW OF SYSTEMS: CONSTITUTIONAL: No fevers, no chills. Some shortness of breath. HEENT: No changes in vision or hearing. CARDIAC: No chest pain reported now. The patient is in atrial fibrillation. RESPIRATORY: Short of breath, acute on chronic. GASTROINTESTINAL: No nausea, vomiting, diarrhea, constipation. GENITOURINARY: No dysuria, hematuria. NEUROLOGIC: No focal neurologic deficits. HEMATOLOGIC: History of anemia. PHYSICAL EXAMINATION: VITAL SIGNS: Temperature 98.4, heart rate is 60 paced, blood pressure 91/55. GENERAL: She is a well-nourished woman in no acute distress, alert and oriented aware of her condition. HEAD: Normocephalic, atraumatic. Eyes anicteric. NECK: Supple. JVD 6 to 7 cm. HEART: Irregular. Pacemaker site appears well healed. LUNGS: Coarse at the base. ABDOMEN: Distended, bowel sounds are present. There is no hepatosplenomegaly. GENITOURINARY: Exam in intact. EXTREMITIES: No cyanosis, clubbing or edema. LABORATORY DATA: ECG read by me shows atrial fibrillation with paced rhythm. White blood cell coun t is 2.3, hemoglobin is 8.3, platelets 56. INR is 1.1. Sodium 136, potassium , BUN is , creatinine is 1.8. Troponin is negative with TSH of 151. ASSESSMENT AND PLAN: 1. Atrial fibrillation. Appears that atrial fibrillation is chronic. She is not a good candidate for anticoagulation now with fairly low platelets. Continue to follow for now. Pacemaker appears t o have good function. I am not sure when the pacemaker was checked last time but it appears to be w ell paced. For now, conservative therapy is expected. We will see if the pacemaker needs to be int errogated for inpatient versus outpatient. 2. Shortness of breath, likely multifactorial. The patient might have some degree of fluid overloa d, difficult to remove fluid with hypotension. Continue to monitor. 3. Acute renal failure. Creatinine is slightly elevated. Continue to avoid nephrotoxic medication s. Renal team will follow. 4. Anemia. Hemoglobin is on the low side, no acute bleeding now, will monitor. 5. Pneumonia. The patient has pneumonia, on antibiotics. Dr. Hernández will follow. I would like to thank Dr. Hernández for referring this patient for my evaluation. Dictated By: MADELIN AGUILAR MD ML/NTS Conf#: [id number] DID#: [id number] CC: LUZ MARIA HERNÁNDEZ MD;*EndCC*
[2017-01-29] MEDS ORDERED: COLLAGENASE 30 GM TUBE TOP SCH (09:00)
[2017-01-29 16:26] LABS: ABNORMAL PROTEIN BAND 1 0.1 g/dL (NONE DETECTED); ALBUMIN 2.9 g/dL (3.8-4.8)
== END 2017-01-28 16:30 | DRG 871 ==
LOC: E/R 21:46 → TEL 01-27 00:49
PROVIDERS: ADMIT Family Medicine; ATTEND Family Medicine
PROC: 30233N1 Transfusion of Nonautologous Red Blood Cells into Peripheral Vein, Percutaneous Approach (ICD-10-PCS; principal; 2017-01-27)
DX: A41.9 Sepsis, unspecified organism (principal); J18.9 Pneumonia, unspecified organism; J96.00 Acute respiratory failure, unspecified whether with hypoxia or hypercapnia; N17.0 Acute kidney failure with tubular necrosis; D61.818 Other pancytopenia; J44.0 Chronic obstructive pulmonary disease with (acute) lower respiratory infection; F01.51 Vascular dementia, unspecified severity, with behavioral disturbance; I42.9 Cardiomyopathy, unspecified; D46.9 Myelodysplastic syndrome, unspecified; E86.0 Dehydration; I50.9 Heart failure, unspecified; I48.2 Chronic atrial fibrillation; E87.5 Hyperkalemia; E78.5 Hyperlipidemia, unspecified; E03.9 Hypothyroidism, unspecified; I25.10 Atherosclerotic heart disease of native coronary artery without angina pectoris; K21.9 Gastro-esophageal reflux disease without esophagitis; M81.0 Age-related osteoporosis without current pathological fracture; M19.90 Unspecified osteoarthritis, unspecified site; N18.9 Chronic kidney disease, unspecified; K74.60 Unspecified cirrhosis of liver; Z22.322 Carrier or suspected carrier of Methicillin resistant Staphylococcus aureus; Z88.2 Allergy status to sulfonamides; Z95.0 Presence of cardiac pacemaker; Z88.0 Allergy status to penicillin
CPT/HCPCS: 36415; 36430; 71010; 76700; 80048; 80053; 82306; 82378; 82607; 82668; 82728; 82746; 83010; 83540; 83605; 84132; 84155; 84165; 84443; 84484; 84560; 85025; 85045; 85610; 85730; 86850; 86900; 86901; 86920; 87040; 87081; 92610; 93005; 96374; 96375; J1940; J0885; J1815; J2916; J3370; J7030; J7040; J7042; P9016

== ENCOUNTER 2017-02-12 09:09 | Inpatient (IN) | payer MEDICARE, OTHER ==
[2017-02-12] VITALS (28 sets, daily range): BP systolic 60–220; BP diastolic 16–195; PULSE 59–115; RESP 17–33; TEMP 99.6; Ht 162.6 cm; Wt 63.6 kg
[~2017-02-12] VITALS: Ht 162.6 cm; Wt 63.6 kg
[~2017-02-12 09:09] MED LIST changes: +DEXTROSE 50% 50 ML SYRINGE ONE; +EPINEPHrine 0.1 MG/ML SYG ONE
--- NOTE | 2017-02-12 09:45 | ERD ---
ER Documentation Chief Complaint Chief Complaint sent from [facility] for being more altered than usual, DNR HPI 86-year-old woman who is on DNR status brought in by EMS [facility] for hypotension and decreased mental status. She has multiple medical conditions and is bedbound. She has had no documented fevers, no vomiting, no diarrhea, no loss of consciousness, no seizure activity. HPI was limited although supplemented by previous medical records, [facility] records, speaking to EMS , speaking to PMD, and nurses were at the bedside. Patient has a DO NOT RESUSCITATE/DO NOT INTUBATE POLST form. ROS All systems reviewed and are negative except as per history of present illness. Medications Home Meds Reported Medications Furosemide* (Furosemide*) 20 Mg Tablet, 20 MG PO BID, #30 TAB 02/12/17 Ipratropium-Albuterol (Ipratropium-Albuterol) 0.5-3 Mg/3 Ml Ampul.neb, 3 ML INHALATION Q6 Y for WHEEZING AND SOB, #30 VIAL 02/12/17 Potassium Chloride* (Potassium Chloride*) 20 Meq Tablet.er, 20 MEQ PO BID, TAB.SA 02/12/17 Midodrine* (Midodrine*) 5 Mg Tablet, 5 MG PO TID, TAB 02/12/17 Levothyroxine Sodium* (Levothyroxine Sodium*) 150 Mcg Tablet, 150 MCG PO BEFORE BREAKFAST, #30 TAB 02/12/17 Famotidine* (Famotidine*) 10 Mg Tablet, 10 MG PO AC BREAKFAST, #30 TAB 02/12/17 Epoetin jim* (Epogen*) 4,000 Unit/1 Ml Vial, 4000 UNIT SC FRIDAY, VIAL 02/12/17 Digoxin* (Digox*) 125 Mcg Tablet, 0.125 MG PO DAILY, TAB 02/12/17 Ferrous Sulfate* (Ferrous Sulfate*) 325 Mg Tabec, 325 MG PO BID, TAB 02/12/17 Mirtazapine* (Remeron*) 15 Mg Tablet, 15 MG PO HS, TAB 02/12/17 Cholecalciferol* (Vitamin D3*) 1,000 Unit Tablet, 3000 UNIT PO DAILY, TAB 02/12/17 Nitroglycerin* (Nitroglycerin* SL) 0.4 Mg Tab.subl, 0.4 MG SL Q5MIN Y for CHEST PAIN, BOTTLE 02/12/17 Zolpidem Tartrate* (Ambien*) 5 Mg Tablet, 5 MG PO QHS Y for INSOMNIA, #30 TAB 02/12/17 Amino Acids/Protein Hydrolys (Pro-Stat 64 Liquid) 887 Ml Liquid, 30 ML PO DAILY 02/12/17 Metoprolol Tartrate* (Lopressor*) 25 Mg Tab, 12.5 MG PO DAILY, TAB HOLD IF SBP<110 02/17/15 Cran/Vitc/Mannose/Inulin/Brom (Uti-Stat Liquid) 3,875 Mg/30 Ml Liquid, 3875 MG PO DAILY 02/17/15 Multivitamins* (Once Daily*) 1 Tab Tablet, 1 TAB PO DAILY, TAB 02/17/15 Docusate Sodium* (Docusate Sodium*) 100 Mg Capsule, 100 MG PO BID Y for CONSTIPATION, #60 CAP 02/17/15 Ascorbic Acid* (Vitamin C*) 500 Mg Capsule.sa, 500 MG PO DAILY, CAP 02/17/15 Allopurinol* (Allopurinol*) 100 Mg Tablet, 100 MG PO DAILY, TAB 02/17/15 Acetaminophen* (Acetaminophen*) 650 Mg Tablet, 650 MG PO Q4 Y for PAIN AND OR ELEVATED TEMP, #30 TAB 02/17/15 Na Phos,M-B/Na Phos,Di-Ba* (Fleet* Enema) 118 Ml Enema, 118 ML WV Q48H Y for CONSTIPATION, ENEMA 02/17/15 Bisacodyl* (Dulcolax*) 10 Mg/Supp.rect Supp.rect, 10 MG WV Q48 Y for CONSTIPATION, SUPP.RECT 02/17/15 Magnesium Hydroxide* (Milk Of Magnesia*) 400 Mg/5 Ml Oral.susp, 30 ML PO QHS, ML 02/17/15 Discontinued Reported Medications Calcium Citrate* (Citracal*) 950 Mg Tab, 950 MG PO DAILY, TAB 02/17/15 Pregabalin* (Lyrica*) 25 Mg Capsule, 25 MG PO DAILY, CAP 02/17/15 Pantoprazole* (Pantoprazole*) 40 Mg Tablet.dr, 40 MG PO AC BREAKFAST, TAB 02/17/15 Mirtazapine* (Remeron*) 15 Mg Tablet, 15 MG PO HS, TAB 02/17/15 Levothyroxine Sodium* (Levothyroxine Sodium*) 100 Mcg Tablet, 100 MCG PO BEFORE BREAKFAST, #30 TAB 02/17/15 Folic Acid* (Folic Acid*) 1 Mg Tablet, 1 MG PO DAILY, TAB 02/17/15 Allergies Allergies: Coded Allergies: Penicillins (Verified Allergy, Unknown, 02/12/17) Sulfa (Sulfonamide Antibiotics) (Verified Allergy, Unknown, 02/12/17) amoxicillin (Verified Allergy, Unknown, 02/12/17) PMhx/Soc Bedbound state, diffuse muscular wasting, renal failure, anemia, myelodysplastic disorder, dementia, hypothyroidism, cirrhosis, thrombocytopenia , previous hyperkalemia, DNR status History of Surgery: No Hx Respiratory Disorders: Yes (COPD, PLERAL EFFUSION) Hx Cardiac Disorders: Yes (CHF, ANGINA, HYPERLIPIDEMIA) Hx Psychiatric Problems: Yes (DEMENTIA) Hx Alcohol Use: No Hx Tobacco Use: No FmHx Family History: No diabetes Physical Exam Vitals Vital Signs Date Time Temp Pulse Resp B/P Pulse Ox O2 Delivery O2 Flow Rate FiO2 02/12/17 09:29 99.6 60 30 66/34 98 Physical Exam GENERAL: Elderly, chronically debilitated woman, afebrile, emaciated, appears dehydrated HEENT: Gladwin conjunctiva, dry mucous membranes, no cervical spine deformity NEURO: Eyes open, moaning, pupils equal round reactive, nonverbal, diffuse muscular wasting, bilateral lower extremity paralysis CARDIAC: Regular rate, systolic murmur, no rubs or gallops LUNGS: Poor breath sounds bilaterally, with crackles, no wheezing or stridor ABDOMEN: Soft nontender, no guarding, no rigidity, no rebound, no psoas sign no obturator sign. SKIN: Diffuse skin desquamation with superficial hematomas to the extremities bilaterally, superficial skin ulcerations without active drainage or discharge EXTREMITIES: Distal pulses equal and bilateral, diffuse muscular wasting, contraction deformity to the lower extremities bilaterally PSYCH: Unable to assess Result Diagram: 02/13/17 1050 02/13/17 1050 Results 24 hrs Current Medications Medications (Trade) Dose Ordered Sig/Josh Route PRN Reason Start Time Stop Time Status Last Admin Dose Admin Sodium Chloride (NS) 3,000 ml BOLUS OVER 2 HOURS STAT IV* 02/12/17 09:50 02/12/17 09:53 DC 02/12/17 10:51 Acetaminophen 650 mg 650 mg ONCE STAT WV 02/12/17 09:50 02/12/17 09:53 DC Cefepime HCl (Maxipime 2gm/50 ml (Pmx)) 50 ml @ 100 mls/hr ONCE STAT IVPB 02/12/17 09:50 02/12/17 10:19 DC 02/12/17 11:07 Albuterol (Proventil 0.083% (Neb)) 10 mg ONCE STAT HHN 02/12/17 09:52 02/12/17 09:55 DC 02/12/17 10:08 Procedures/MDM IV line was established 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 Patient was afebrile at 99F rectal temperature although I do suspect sepsis. Patient is hypotensive, blood and urine cultures were ordered results are pending I will follow-up. Hill catheter was placed. Patient was given 3 L normal saline intravenously for dehydration on initial hypotension, initial blood pressure was 60 mmHg. One view chest x-ray performed, read by me revealed a right lower lobe infiltrate and bilateral pleural effusions with cardiomegaly, I suspect pulmonary congestion as well. EKG performed, read by me revealed a atrial fibrillation rate controlled at 89 bpm, normal axis, right ventricular conduction delay with incarceration of 102 ms, no concerning ST elevations or depressions noted. CBC reveals a leukopenia 3.5 and anemia with a hemoglobin of 8.8 consistent with her history. Electrolytes were also abnormal and consistent for dehydration with hypernatremia of 155, and a BUN/creatinine at 111/3.5, liver function tests normal, troponin negative. Patient also had hypocalcemia, lactic acid elevated at 3.5. INR elevated. Urine analysis was positive for infection. I suspect sepsis and septic shock patient's blood pressure is responding to IV fluid bolus therapy for intubation and central line placement will be deferred as patient has a DO NOT RESUSCITATE form which is signed, and her wishes were for minimal intervention and generally for comfort care. We will treat her here with IV fluid bolus and antibiotics, as she is positive for pneumonia and urinary tract infection. I administered cefepime 1 g IV and vancomycin 1 g IV. Patient also received hydrocortisone 100 mg IV, albuterol 10 mg via nebulizer, and fentanyl 25 mcg IV boluses for pain control. Patient's infectious symptoms have not stabilized and the patient is at risk of rapid decompensation. The patient will be admitted for careful hydration, antibiotic therapy, and infectious source control. Severe Sepsis Assessment: Infectious Source: Urinary tract infection and pneumonia End organ damage indicated by: Lactate > 2.0 mmol/L Hypotension( SBP < 90 or >40 mmHG drop or MAP < 65) Severe Sepsis Managment: Blood Cultures X 2 before broad spectrum antibiotics initiated within 3 hours of recognition. 30 ml/kg NS bolus Completed Initial Lactate: Elevated at 3.5 Repeat Lactate pending Critical Care: Time: 55 minutes, this was time separate from other billable procedures Treatments/Evaluations: Emergent fluid management, while maintaining close respiratory support. Immediate broad spectrum antibiotic therapy. Simultaneous assessment for possible sources in order to direct therapy. Consideration for invasive and chemical support to prevent respiratory or cardiac collapse. Septic Shock Assessment (1 hour post 30 ml/kg fluid bolus): Hypotension (SBP < 90 or 40 mmHg drop, MAP < 65): Yes Lactic acid > 4.0 no Perfusion Reassessment for Septic Shock: Temp 99.9, pulse 80, respiratory rate 20 breaths per minute, BP 90/60 mmHg Heart Exam: Regular rate and rhythm Lung Exam: Bilateral crackles Capillary Refill: Delayed Peripheral Pulses: Radially present Skin: Gladwin and dry Hypotensive Treatment (not required for isolated lactic acid elevation): Comfort Care: No Central LIne: Deferred per patient's wishes and to maintain comfort care Vasopressor started: Deferred I considered further perfusion assessment with CVP measurement, SCVO2, bedside ultrasound volume assessment, passive leg raise, trial of further fluid bolus. And preceded with aggressive IV fluid hydration and broad-spectrum IV antibiotics Accepting Care Team: Current data and ongoing care discussed. Time: Time of admission Primary Provider: Dr. Janneth Ross Consulting: Infectious disease Outstanding Data: none Departure Diagnosis: Primary Impression: Acute encephalopathy Additional Impressions: Septic shock Hypotension Hypotension type: unspecified hypotension type Qualified Code: I95.9 - Hypotension, unspecified hypotension type Dehydration Pneumonia Pneumonia type: due to unspecified organism Laterality: right Lung location : lower lobe of lung Qualified Code: J18.1 - Pneumonia of right lower lobe due to infectious organism UTI (urinary tract infection) Urinary tract infection type: acute cystitis Hematuria presence: without hematuria Qualified Code: N30.00 - Acute cystitis without hematuria Myelodysplasia (myelodysplastic syndrome) DNR (do not resuscitate) Condition: Critical ZOHRABIAN,PAMELA MD Feb 12, 2017 09:45 Lactic Acid Level 3.7mmol/L Calcium Level 7.9mg/dl Total Bilirubin 0.5mg/dl Direct Bilirubin 0.00mg/dl Indirect Bilirubin 0.5mg/dl Aspartate Amino Transf (AST/SGOT) 13IU/L Alanine Aminotransferase (ALT/SGPT) 24IU/L Alkaline Phosphatase 56IU/L Troponin I 0.074ng/ml Total Protein 4.1g/dl Albumin 1.8g/dl Globulin 2.30g/dl Albumin/Globulin Ratio 0.78 Lipase 51U/L Current Medications Medications (Trade) Dose Ordered Sig/Josh Route PRN Reason Start Time Stop Time Status Last Admin Dose Admin Sodium Chloride (NS) 3,000 ml BOLUS OVER 2 HOURS STAT IV* 02/12/17 09:50 02/12/17 09:53 DC 02/12/17 10:51 Acetaminophen 650 mg 650 mg ONCE STAT WV 02/12/17 09:50 02/12/17 09:53 DC Cefepime HCl 50 ml @ 100 mls/hr ONCE STAT IVPB 02/12/17 09:50 02/12/17 10:19 DC 02/12/17 11:07 Vancomycin HCl (Vancocin) 250 ml @ 125 mls/hr ONCE ONCE IVPB 02/12/17 10:00 02/12/17 11:59 02/12/17 11:46 Albuterol (Proventil 0.083% (Neb)) 10 mg ONCE STAT HHN 02/12/17 09:52 02/12/17 09:55 DC 02/12/17 10:08 Hydrocortisone (Solu-Cortef) 100 mg ONCE ONCE IV 02/12/17 10:00 02/12/17 10:01 DC 02/12/17 11:07 Fentanyl (Sublimaze) 100 mcg ONCE ONCE IV 02/12/17 11:30 02/12/17 11:31 DC 02/12/17 11:27 Procedures/MDM IV line was established 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 Patient was afebrile at 99F rectal temperature although I do suspect sepsis. Patient is hypotensive, blood and urine cultures were ordered results are pending I will follow-up. Hill catheter was placed. Patient was given 3 L normal saline intravenously for dehydration on initial hypotension, initial blood pressure was 60 mmHg. One view chest x-ray performed, read by me revealed a right lower lobe infiltrate and bilateral pleural effusions with cardiomegaly, I suspect pulmonary congestion as well. EKG performed, read by me revealed a atrial fibrillation rate controlled at 89 bpm, normal axis, right ventricular conduction delay with incarceration of 102 ms, no concerning ST elevations or depressions noted. CBC reveals a leukopenia 3.5 and anemia with a hemoglobin of 8.8 consistent with her history. Electrolytes were also abnormal and consistent for dehydration with hypernatremia of 155, and a BUN/creatinine at 111/3.5, liver function tests normal, troponin negative. Patient also had hypocalcemia, lactic acid elevated at 3.5. INR elevated. Urine analysis was positive for infection. I suspect sepsis and septic shock patient's blood pressure is responding to IV fluid bolus therapy for intubation and central line placement will be deferred as patient has a DO NOT RESUSCITATE form which is signed, and her wishes were for minimal intervention and generally for comfort care. We will treat her here with IV fluid bolus and antibiotics, as she is positive for pneumonia and urinary tract infection. I administered cefepime 1 g IV and vancomycin 1 g IV. Patient also received hydrocortisone 100 mg IV, albuterol 10 mg via nebulizer, and fentanyl 25 mcg IV boluses for pain control. Patient's infectious symptoms have not stabilized and the patient is at risk of rapid decompensation. The patient will be admitted for careful hydration, antibiotic therapy, and infectious source control. Severe Sepsis Assessment: Infectious Source: Urinary tract infection and pneumonia End organ damage indicated by: [Lactate > 2.0 mmol/L Hypotension( SBP < 90 or >40 mmHG drop or MAP < 65) Severe Sepsis Managment: Blood Cultures X 2 before broad spectrum antibiotics initiated within 3 hours of recognition. 30 ml/kg NS bolus Completed Initial Lactate: Elevated at 3.5 Repeat Lactate pending Critical Care: Time: 55 minutes, this was time separate from other billable procedures Treatments/Evaluations: Emergent fluid management, while maintaining close respiratory support. Immediate broad spectrum antibiotic therapy. Simultaneous assessment for possible sources in order to direct therapy. Consideration for invasive and chemical support to prevent respiratory or cardiac collapse. Septic Shock Assessment (1 hour post 30 ml/kg fluid bolus): Hypotension (SBP < 90 or 40 mmHg drop, MAP < 65): Yes Lactic acid > 4.0 [No] Perfusion Reassessment for Septic Shock: Temp 99.9, pulse 80, respiratory rate 20 breaths per minute, BP 90/60 mmHg Heart Exam: Regular rate and rhythm Lung Exam: Bilateral crackles Capillary Refill: [Delayed] Peripheral Pulses: [Radially present] Skin: Gladwin and dry Hypotensive Treatment (not required for isolated lactic acid elevation): Comfort Care: No Central LIne: Deferred per patient's wishes and to maintain comfort care Vasopressor started: Deferred I considered further perfusion assessment with CVP measurement, SCVO2, bedside ultrasound volume assessment, passive leg raise, trial of further fluid bolus. And preceded with aggressive IV fluid hydration and broad-spectrum IV antibiotics Accepting Care Team: Current data and ongoing care discussed. Time: Time of admission Primary Provider: Dr. Janneth Ross Consulting: Infectious disease Outstanding Data: none Departure Diagnosis: Primary Impression: Acute encephalopathy Additional Impressions: Septic shock Hypotension Hypotension type: unspecified hypotension type Qualified Code: I95.9 - Hypotension, unspecified hypotension type Dehydration Pneumonia Pneumonia type: due to unspecified organism Laterality: right Lung location : lower lobe of lung Qualified Code: J18.1 - Pneumonia of right lower lobe due to infectious organism UTI (urinary tract infection) Urinary tract infection type: acute cystitis Hematuria presence: without hematuria Qualified Code: N30.00 - Acute cystitis without hematuria Myelodysplasia (myelodysplastic syndrome) DNR (do not resuscitate) Condition: Critical PAMELA PADILLA MD Feb 12, 2017 09:45
[2017-02-12] MEDS ORDERED: SODIUM CHLORIDE 0.9% 1L BAG IV* STA (09:50)
[2017-02-12] MEDS ORDERED: ACETAMINOPHEN 650 MG SUPP PR STA (09:50)
[2017-02-12] MEDS ORDERED: CEFEPIME 2GM/50 ML (PMX) 50 ML IVPB STA (09:50)
[2017-02-12] MEDS ORDERED: ALBUTEROL 0.083% (NEB) 2.5 MG/3 ML AMP HHN STA (09:52)
[2017-02-12] MEDS ORDERED: HYDROCORTISONE 100 MG INJ IV ONE (10:00)
[2017-02-12] MEDS ORDERED: VANCOMYCIN 1 GM (PMX) 250 ML IVPB ONE (10:00)
[2017-02-12] MEDS ORDERED: AMIN887L PO (10:08)
[2017-02-12] MEDS ORDERED: NITR0.4T32 SL (10:09)
[2017-02-12] MEDS ORDERED: ZOLP5TAB PO (10:09)
[2017-02-12] MEDS ORDERED: FER325 PO (10:10)
[2017-02-12] MEDS ORDERED: MIRT15TA PO (10:10)
[2017-02-12] MEDS ORDERED: CHOL100062 PO (10:10)
[2017-02-12] MEDS ORDERED: EPOE40002 SC (10:11)
[2017-02-12] MEDS ORDERED: DIGO125T19 PO (10:11)
[2017-02-12] MEDS ORDERED: LEVO150T67 PO (10:12)
[2017-02-12] MEDS ORDERED: FAMO10TA84 PO (10:12)
[2017-02-12] MEDS ORDERED: POTA20TA96 PO (10:13)
[2017-02-12] MEDS ORDERED: MIDO5TAB19 PO (10:13)
[2017-02-12] MEDS ORDERED: IPRA3AMP INHALATION (10:14)
[2017-02-12] MEDS ORDERED: FURO20TA3 PO (10:14)
[2017-02-12 11:00] LABS: ADD UMIC YES; UR ASCORBIC ACID NEGATIVE (NEGATIVE); UR BACTERIA MODERATE /HPF (NONE SEEN); UR BILIRUBIN (Dip) NEGATIVE (NEGATIVE); UR BLOOD (Dip) 1+ mg/dL (NEGATIVE); UR CLARITY CLOUDY (CLEAR); UR COLOR AMBER (YELLOW); UR GLUCOSE (Dip) NEGATIVE (NEGATIVE); UR KETONES (Dip) NEGATIVE (NEGATIVE); UR LEUKOCYTE ESTERASE (Dip) 2+ Leu/ul (NEGATIVE); UR MUCUS FEW /HPF (NONE SEEN); UR NITRITE (Dip) NEGATIVE (NEGATIVE); UR NONSQUAMOUS EPITHELIAL CELL 1 /HPF (NONE SEEN); UR RBC 10 /HPF (0-5); UR SPECIFIC GRAVITY (Dip) 1.016 (1.003-1.030); UR SQUAMOUS EPITHELIAL CELL FEW /HPF (FEW); UR TOTAL PROTEIN (Dip) NEGATIVE (NEGATIVE); UR UROBILINOGEN (Dip) 1+ mg/dL (NEGATIVE)
[2017-02-12 11:01] LABS: ABNORMAL IP MESSAGE 1; HEMATOCRIT 28.1 % (37.0-47.0); HEMOGLOBIN 8.8 g/dl (12.0-16.0); MEAN CORPUSCULAR HEMOGLOBIN 30.3 pg (29.0-33.0); MEAN CORPUSCULAR HGB CONC 31.3 g/dl (32.0-37.0); MEAN CORPUSCULAR VOLUME 96.9 fl (82.0-101.0); MEAN PLATELET VOLUME 10.3 fl (7.4-10.4); PLATELET COUNT 46 10^3/UL (140-415); RED CELL DISTRIBUTION WIDTH 20.4 % (11.5-14.5); WHITE BLOOD COUNT 3.5 10^3/ul (4.8-10.8)
[2017-02-12 11:05] LABS: POSITIVE DIFF @See below
--- NOTE | 2017-02-12 11:09 | RADRPT ---
PROCEDURE: XR Chest 1 view. CLINICAL INDICATION: Shortness of breath. Sepsis. TECHNIQUE: Single view of the chest was obtained. COMPARISON: DR DIXON 01/26/2017 FINDINGS: The heart is large. Calcified atherosclerosis is noted in the aorta. Central pulmonary vascular con gestion and interstitial prominence is seen in both lungs. Right perihilar and lower lung infiltrate s, combined with moderate pleural effusion identified. Retrocardiac opacity is seen. Left-sided pace maker has its lead over the heart and appears stable. Osseous structures are osteopenic, but appear grossly intact. Degenerative changes are identified in the shoulders. Deformity of the surgical nec k of the right humerus is unchanged. IMPRESSION: Cardiomegaly with calcified atherosclerosis in the aorta. Central pulmonary vascular congestion and interstitial prominence in both lungs. Retrocardiac opacity that may reflect left lower lobe atelectasis or infiltrate combined with small pleural effusion. Right perihilar and lower lung infiltrates, combined with moderate pleural effusion. RPTAT: AA .Gurvinder Rivera MD, MD Date Time Electronically viewed and signed by .Gurvinder Rivera MD, on 02/12/2017 11:09 .P/
[2017-02-12 11:24] LABS: INR 1.78; PROTIME 21.1 Sec (11.9-14.9); PT RATIO 1.6
[2017-02-12 11:25] LABS: PARTIAL THROMBOPLASTIN TIME 48.4 Sec (25.0-35.0)
[2017-02-12 11:27] LABS: ALBUMIN 1.8 g/dl (3.3-4.9); ALBUMIN/GLOBULIN RATIO 0.78; BILIRUBIN,INDIRECT 0.5 mg/dl (0-1.1); BILIRUBIN,TOTAL 0.5 mg/dl (0.2-1.3); CALCIUM 7.9 mg/dl (8.4-10.2); CREATININE 3.45 mg/dl (0.44-1.00); TOTAL PROTEIN 4.1 g/dl (6.1-8.1)
[2017-02-12] MEDS ORDERED: FENTAnyl 50 MCG/ML VIAL IV ONE (11:30)
[2017-02-12 11:31] LABS: ANISOCYTOSIS 1+ (0-0); BURR CELLS 1+ (0-0); METAMYELOCYTES %M 3 % (0-0); MICROCYTOSIS 1+ (0-0); MONOCYTES % (M) 1 % (0-11); OVALOCYTES 1+ (0-0); PLATELET ESTIMATE SIG DECREASED; POIKILOCYTOSIS 1+ (0-0)
[2017-02-12 11:38] LABS: TROPONIN-I 0.074 ng/ml (0.00-0.12)
[2017-02-12] MEDS ORDERED: CALCIUM GLUCONATE 10% 2 GM in DEXTROSE 5% 100 ML IVPB ONE (12:30)
[2017-02-12] MEDS ORDERED: NORepinephrine 8MG/250 ML (PMX 250 ML ONE (18:11)
[2017-02-12] MEDS ORDERED: NORepinephrine 8MG/250 ML (PMX 250 ML IV SCH (18:30)
[2017-02-12] MEDS ORDERED: PHENYLephrine 20MG IN 250 ML 250 ML IV SCH (18:30)
[2017-02-12] MEDS: DEXTROSE 5%-0.9% NACL 1,000 ML IV SCH (20:10)
[2017-02-12] MEDS ORDERED: PENDING SANTYL ORDER FOR WOUND CARE XX PRN (20:30)
[2017-02-13] VITALS (83 sets, daily range): BP systolic 59–262; BP diastolic 12–240; PULSE 93–124; RESP 13–41
[2017-02-13] MEDS: NORepinephrine 32 MG in DEXTROSE 5% 218 ML IV SCH ×2 (04:06→22:16)
[2017-02-13] MEDS: PHENYLephrine 160 MG in DEXTROSE 5% 484 ML IV SCH ×3 (04:25→22:18)
--- NOTE | 2017-02-13 06:55 | HP ---
DATE OF ADMISSION: 02/12/2017 ADMITTING DIAGNOSES: 1. Acute respiratory failure. 2. Sepsis. 3. Severe anemia. 4. Acute encephalopathy. 5. Dehydration. 6. Hypotension. 7. Myelodysplastic syndrome. 8. Acute on chronic renal failure. 9. Thrombocytopenia. HISTORY OF PRESENT ILLNESS: The patient is an 86-year-old female admitted to the hospital from [facility] ____ the SNIF unit after she became desaturated and difficulty breath ing. Patient evaluated in the emergency room and admitted to the floor but her blood pressure dropp ed, transferred to ICU for low ____ and vasopressor. Patient is aphasic, confused, unconscious, bina ble to talk. We discussed her condition with her son ____ and he agreed for CHEMICAL CODE ONLY but no intubation. MEDICATIONS: 1. Lasix 20 mg b.i.d. 2. Hand-held nebulizer albuterol, Atrovent unit dose q.6 hours for shortness of breath or wheezing. 3. Potassium chloride 20 mEq once a day b.i.d. 4. Midodrine 10 mg 3 times a day. 5. Levoxyl 150 mcg once a day. 6. Pepcid 20 mg once a day. 7. Epogen 4000 units weekly. 8. Digoxin 125 mcg daily. 9. Ferrous sulfate 325 mg b.i.d. 10. Remeron 15 mg at bedtime. 11. Cholecalciferol 3000 units daily. 12. Nitroglycerin sublingual tablet 0.4 mg p.r.n. 13. Ambien 5 mg at bedtime p.r.n. 14. Pro-Stat liquid daily. 15. Lopressor 25 mg twice a day. 16. Multivitamin. 17. Docusate sodium 100 mg b.i.d. 18. Vitamin C 500 mg daily. 19. Allopurinol 100 mg daily. 20. Tylenol 650 q.4 hours p.r.n. temperature above 100 or mild pain. 21. Dulcolax suppository p.r.n. 22. Protonix 40 mg once a day. HABITS: Not a smoker, drinker or drug abuser. FAMILY HISTORY: Unremarkable. PAST MEDICAL HISTORY: Please check old record. The patient has history of vascular dementia, cardi omyopathy. Status post multiple cardiac workups. Pacemaker left side already checked by Dr. Herring last week which shows cardiomegaly. Patient has past medical history of hypothyroidism and anorexi a, dysphagia, CHF, pleural effusion, acute renal failure on chronic. Myelodysplastic syndrome on Ep ogen and patient's family refused bone marrow transplant. History of osteoarthritis, osteoporosis, incontinent of urine and stool, peptic ulcer disease, gout, recurrent urinary tract infection. PAST SURGICAL HISTORY: Pacemaker. FAMILY HISTORY: Unremarkable. REVIEW OF SYSTEMS: GASTROINTESTINAL: No history of upper or lower GI bleeding, but dysphagia lately unable to eat with dehydration and malnutrition with constipation. CARDIOVASCULAR: Cardiomyopathy status post pacemaker, congestive heart failure. No peripheral vasc ular disease. GENITOURINARY: Incontinent of urine with chronic renal failure and recurrent urinary tract infectio n with BUN and creatinine elevated and recurrent congestive heart failure. ____ NEUROLOGIC: The patient has vascular dementia with weakness, not responsive now, unable to walk. MUSCULOSKELETAL: Severe advanced osteoarthritis and osteoporosis. SKIN: No decubitus or skin lesions. MENTAL: The patient has history of depression and dementia. HEMATOLOGY: Myelodysplastic syndrome and thrombocytopenia seen by Dr. Anna multiple times last week____. PHYSICAL EXAMINATION: GENERAL: The patient is unconscious, not responding to any verbal stimuli, responding slowly to phy sical stimuli. VITAL SIGNS: On admission shows pulse 60, respirations 32, blood pressure was 60/29 and went slowly to 70/16, pulse oximetry 100% oxygen. She is on nonrebreather mask. HEAD: Normocephalic, atraumatic. Pupils equal, react to light, unable to do accommodation. Sclera e anicteric. Extraocular movements normal limits. Throat clear. No sign of acute infection seen. Facial skin and scalp within normal limits. NECK: Supple, trachea central, no thyroid enlargement, no cervical lymphadenopathy. Carotid pulse normal. No jugular venous distention. CHEST: Normal contour, normal inspiration and expiration. LUNGS: Basilar crepitations with rales both sides of lungs with on nonrebreather with large pleural effusion. HEART: Cardiomegaly with pacemaker on left side with II/ systolic murmur. ABDOMEN: Umbilicus central. No organomegaly. No tenderness or rebound tenderness. Bowel sounds p ositive. GENITALIA: External genitalia within normal limits. VAGINAL AND RECTAL: The patient refused. EXTREMITIES: Upper and lower extremities normally shaped at this moment. No clubbing, no cyanosis or deformity contracted knees with atrophy of the muscles with edema 2+ in legs. NEUROLOGICAL: The patient is unconscious, not responding to any verbal stimuli, responding a little to physical stimuli. PLAN: Patient admitted to ICU. We will monitor her vital signs. Dr. Herring in cardiology consult will follow up. PROGNOSIS: Poor. CODE STATUS: NO CODE, NO CPR. We will follow up. Dictated By: LUZ MARIA MCDERMOTT/ERICKA Conf#: [id number] DID#: [id number]
[2017-02-13] MEDS ORDERED: VANCOMYCIN IV PER PHARMACY XX SCH (07:00)
--- NOTE | 2017-02-13 08:44 | CONS ---
Date/Time of Note Date/Time of Note DATE: 02/13/17 TIME: 08:36 Assessment/Plan Assessment/Plan Chief Complaint/Hosp Course - ACUTE KIDNEY INJURY - CHRONIC KIDNEY DISEASE - ACIDOSIS - SHOCK ( SEPTIC vs CARDIOGENIC ) - ANEMIA - HYPERNATREMIA - PANCYTOPENIA - UTI / UROSEPSIS PLAN: Hemodynamic support at this time with volume expanders Continue with IVF 0.9% at this time & Monitor her serum sodium closely May need to change to 0.45%NS if serum sodium continues to increase Encourage Free water Continue with IV Pressors Needs broad spectrum Antibiotics Hx of blood transfusion on her last hospital admission Check IRON panel Start EPOGEN If adequate IRON stores Pancytopenia ( Long history in the past & the family are aware of this, They have been offered a BM biopsy which they refused ) Follow up with serum potassium closely Check Phos Check Mg THANK YOU V. MUCH Problems: Consultation Date/Type/Reason Admit Date/Time Feb 12, 2017 at 09:54 Date of Consultation: Feb 13, 2017 Type of Consultation: NEPHROLOGY Reason for Consultation - MARIA L - CKD Subjective hx not possible: pt critical status Constitutional: no complaints Eyes: no complaints ENT: no complaints Respiratory: pain, shortness of breath Gastrointestinal: no complaints Genitourinary: no complaints Musculoskeletal: no complaints Neurologic: no complaints Past Medical History Medical History: congestive heart failure, coronary artery disease, GERD, GI bleed, renal disease Past Surgical History Past Surgical Hx: noncontributory Family History Significant Family History: no pertinent family hx Social History Alcohol Use: none Smoking Status: Never smoker Drug Use: none Exam/Review of Systems Vital Signs Vitals Vital Signs Date Time Temp Pulse Resp B/P Pulse Ox O2 Delivery O2 Flow Rate FiO2 02/13/17 08:15 115 26 02/13/17 08:00 95.6 117/60 100 Non Rebreather 02/13/17 08:00 15.0 02/12/17 10:11 21 Intake and Output 02/12/17 02/12/17 02/13/17 15:00 23:00 07:00 Intake Total 3420 ml 185 ml 606 ml Output Total 45 ml 30 ml Balance 3420 ml 140 ml 576 ml Exam Constitutional: alert Psych: no complaints Head: normocephalic Eyes: nl conjunctiva ENMT: nl external ears & nose Respiratory: crackles/rales, diminished breath sounds Cardiovascular: edema, systolic murmur Gastrointestinal: soft Results Result Diagram: 02/12/17 1030 02/12/17 1030 Results 24 hrs Laboratory Tests Test 02/12/17 10:30 02/12/17 12:55 02/12/17 14:40 White Blood Count 3.5 #L Red Blood Count 2.90 L Hemoglobin 8.8 L Hematocrit 28.1 L Mean Corpuscular Volume 96.9 Mean Corpuscular Hemoglobin 30.3 Mean Corpuscular Hemoglobin Concent 31.3 L Red Cell Distribution Width 20.4 H Platelet Count 46 L Mean Platelet Volume 10.3 Neutrophils % Segmented Neutrophils % (Manual) 41 Band Neutrophils % (Manual) 27 H Lymphocytes % Lymphocytes % (Manual) 28 Monocytes % Monocytes % (Manual) 1 Eosinophils % Basophils % Metamyelocytes % (manual) 3 H Nucleated Red Blood Cells % 0.0 Neutrophils # Neutrophils # (Manual) 1.5 L Band Neutrophils # 0.9 H Absolute Lymphocytes (Manual) 0.9 Lymphocytes # Monocytes # Absolute Monocytes (Manual) 0.0 L Eosinophils # Basophils # Metamyelocytes # 0.1 H Nucleated Red Blood Cells # Platelet Estimate SIG DECREASED Poikilocytosis 1+ Anisocytosis 1+ Microcytosis 1+ Macrocytosis 1+ Ovalocytes 1+ Prothrombin Time 21.1 #H Prothrombin Time Ratio 1.6 INR International Normalized Ratio 1.78 Activated Partial Thromboplast Time 48.4 H Urine Color ANILA Urine Clarity CLOUDY A Urine pH 5.0 Urine Specific [place] 1.016 Urine Ketones NEGATIVE Urine Nitrite NEGATIVE Urine Bilirubin NEGATIVE Urine Urobilinogen 1+ H Urine Leukocyte Esterase 2+ H Urine Microscopic RBC 10 H Urine Microscopic WBC 93 H Urine Squamous Epithelial Cells FEW Urine Bacteria MODERATE Urine Hyaline Casts FEW A Urine Mucus FEW A Urine Hemoglobin 1+ H Urine Glucose NEGATIVE Urine Total Protein NEGATIVE Sodium Level 155 H Potassium Level 4.0 Chloride Level 122 H Carbon Dioxide Level 18 L Anion Gap 19 H Blood Urea Nitrogen 111 H Creatinine 3.45 H Glucose Level 59 L Lactic Acid Level 3.7 *H 4.1 *H 4.2 *H Calcium Level 7.9 L Total Bilirubin 0.5 Direct Bilirubin 0.00 Indirect Bilirubin 0.5 Aspartate Amino Transf (AST/SGOT) 13 L Alanine Aminotransferase (ALT/SGPT) 24 Alkaline Phosphatase 56 Troponin I 0.074 Total Protein 4.1 L Albumin 1.8 L Globulin 2.30 Albumin/Globulin Ratio 0.78 Lipase 51 Medications Medications Current Medications Dextrose/Sodium Chloride (D5-NS) 1,000 ml @ 50 mls/hr Q20H IV Last administered on 02/12/17 20:10; Admin Dose 50 MLS/HR; Start 02/12/17 at 20:00 Miscellaneous Information This patient easley... PRN PRN XX WOUND CARE; Start at 20:30 Norepinephrine 32 mg/Dextrose 250 ml @ 0.46 mls/hr TITRATE IV Last administered on 02/13/17 04:06; Admin Dose 2.34 MLS/HR; Start 02/13/17 at 01: 30 Phenylephrine HCl/ Dextrose (Danyel-Syneph/D5W) 500 ml @ 18.75 mls/ hr TITRATE IV Last administered on 02/13/17 04:25; Admin Dose 56.25 MLS/HR; Start at 01:30 FERNANDA JASON MD Feb 13, 2017 08:44
[2017-02-13] MEDS ORDERED: SOD CHLORIDE 0.9% 1,000 ML IV ONE (09:30)
[2017-02-13] MEDS: VASOPRESSIN 60 UNIT in DEXTROSE 5% 57 ML IV SCH ×2 (10:56→22:20)
[2017-02-13 11:09] LABS: ABNORMAL IP MESSAGE 1; HEMATOCRIT 31.2 % (37.0-47.0); HEMOGLOBIN 9.8 g/dl (12.0-16.0); MEAN CORPUSCULAR HEMOGLOBIN 30.3 pg (29.0-33.0); MEAN CORPUSCULAR HGB CONC 31.4 g/dl (32.0-37.0); MEAN CORPUSCULAR VOLUME 96.6 fl (82.0-101.0); MEAN PLATELET VOLUME 12.7 fl (7.4-10.4); NUCLEATED RED BLOOD CELLS% 0.5 /100WBC (0.0-0.0); PLATELET COUNT 60 10^3/UL (140-415); RED BLOOD COUNT 3.23 10^6/ul (4.20-5.40); WHITE BLOOD COUNT 8.5 10^3/ul (4.8-10.8)
[2017-02-13 11:12] LABS: POSITIVE DIFF @See below
--- NOTE | 2017-02-13 11:17 | CONS ---
DATE OF ADMISSION: 02/12/2017 DATE OF CONSULTATION: 02/13/2017 TYPE OF CONSULTATION: Infectious Disease. REASON FOR CONSULTATION: Antibiotic management. HISTORY OF PRESENT ILLNESS: Jacquelyn Coon is an 86-year-old female who was admitted from a detention facility with acute respiratory failure. She was found to be septic in the emergency room and was brought into the hospital. Her other problems include: 1. Vascular dementia. 2. Cardiomyopathy. 3. Pacemaker on the left side. 4. Hypothyroidism. 5. Anorexia. 6. Dysphagia. 7. Congestive heart failure. 8. Acute renal failure. 9. Myelodysplastic syndrome, on Epogen. 10. Osteoarthritis and osteoporosis. 11. Incontinence of urine and stool. 12. Peptic ulcer disease. 13. Gout. 14. Recurrent urinary tract infections. Acutely, the patient comes into the hospital, she is aphasic, confused, unconscious, unable to talk. PAST MEDICAL HISTORY: Operations as outlined. FAMILY HISTORY: Noncontributory. SOCIAL HISTORY: She does not smoke, drink or abuse drugs. ALLERGIES: ALLERGIES TO PENICILLIN, SULFA AND AMOXICILLIN. MEDICATIONS: Per chart. REVIEW OF SYSTEMS: As outlined. PHYSICAL EXAMINATION: GENERAL: The patient is an elderly, chronically debilitated female who is emaciated, dehydrated. S he is also DNR. SKIN: Without generalized rash. HEENT: Within normal limits. NECK: Supple. LYMPH NODES: None palpable. CHEST: Decreased breath sounds at the bases. She has a pacemaker in place. HEART: Without murmur or gallop. ABDOMEN: Soft, nontender, without organosplenomegaly or masses. EXTREMITIES: She has diffuse muscle wasting, contractions of both lower extremities. RECTAL AND GENITAL: Deferred. NEUROLOGIC: Difficult to assess. She is nonverbal. She has muscle wasting and she has bilateral l ower extremity paralysis. HOSPITAL COURSE: On admission, her white count was 3.5, H and H of 8.8 and 28.1, platelet count 46, 000. BUN and creatinine 111/3.45. Patient was seen also by Dr. Pack for hemodynamic support. H e notes that she has acute kidney injury, chronic renal disease, acidosis, hypernatremia and urinary tract infection with urosepsis. Has a history of GERD and GI bleed according to Dr. Pack. IMPRESSION AND PLAN: The patient is currently on vancomycin and received cefepime as well as blood cultures and urine cultures pending. We will continue her on vancomycin and cefepime. We may put h er on ertapenem. We will keep her on cefepime for the time being. I will dictate my findings to Dr. Howard. Dictated By: DORI ZIMMERMAN MD, JD/ERICKA Conf#: [id number] DID#: [id number]
[2017-02-13 11:31] LABS: ALBUMIN 1.8 g/dl (3.3-4.9); ALBUMIN/GLOBULIN RATIO 0.64; BILIRUBIN,INDIRECT 0.5 mg/dl (0-1.1); BILIRUBIN,TOTAL 0.5 mg/dl (0.2-1.3); CALCIUM 7.3 mg/dl (8.4-10.2); CREATININE 2.9 mg/dl (0.44-1.00); POTASSIUM 3.4 mmol/L (3.5-5.1); TOTAL PROTEIN 4.6 g/dl (6.1-8.1)
[2017-02-13] MEDS ORDERED: CEFEPIME 1GM/50 ML (PMX) 50 ML IVPB SCH (12:00)
[2017-02-13] MEDS ORDERED: CEFEPIME 1GM/50 ML (PMX) 50 ML IVPB ONE (12:00)
[2017-02-13] MEDS: HYDROCORTISONE 100 MG INJ IV SCH ×2 (12:01→22:22)
[2017-02-13 12:34] LABS: ANISOCYTOSIS 2+ (0-0); BASOPHILS % (M) 1 % (0-2); BURR CELLS 3+ (0-0); ERYTHROBLAST% (NRBC) (M) 1 % (0-0); METAMYELOCYTES %M 3 % (0-0); MICROCYTOSIS 1+ (0-0); MONOCYTES % (M) 2 % (0-11); MYELOCYTES % (M) 1 % (0-0); PLATELET ESTIMATE SIG DECREASED; POIKILOCYTOSIS 3+ (0-0); POLYCHROMASIA 3+ (0-0)
--- NOTE | 2017-02-13 12:45 | CONS ---
Date/Time of Note Date/Time of Note DATE: 02/13/17 TIME: 12:41 Assessment/Plan Assessment/Plan Additional Assessment/Plan Chest x-ray was reviewed from yesterday which is showing cardiomegaly with a pacemaker as well as bilateral pleural effusions. Blood cultures are positive for gram-positive cocci in clusters and urine is positive for gram-negative rods. Patient is currently on combination pressors with phenylephrine at 300 mics per minute, Levophed 30 mics per minute, vasopressin 0.04 U/min. Assessment and recommendations; 1. Patient admitted with gram-negative and gram-positive sepsis currently on appropriate antibiotic regimen. 2. Severe hypotension on high-dose combination pressor support. 3. Advanced dementia. 4. Anemia and thrombus cytopenia. 5. Chronic renal insufficiency. 6. Possibly bilateral pneumonia as well. Continue current treatment. Obtain an ABG. Start BiPAP. Prognosis appears poor. Consultation Date/Type/Reason Admit Date/Time Feb 12, 2017 at 09:54 Date of Consultation: Feb 13, 2017 Type of Consultation: Pulmonary/critical care Reason for Consultation Pulmonary consultation requested for evaluation of sepsis and hypotension. History of presenting illness; patient is a 86-year-old female who was admitted to the hospital transferred from residential with hypotension. Upon evaluation patient was diagnosed with pneumonia as well as sepsis and started on broad-spectrum antibiotic coverage. Patient also has been quite hypotensive and has been adequately fluid resuscitated however still requiring high-dose combination pressor for severe hypotension. By the time I saw the patient the patient is awake and appearing tachypneic. History was obtained from medical records. Patient has advanced dementia and was unable to give any history whatsoever. Past medical history; 1. Patient with history of cardiac arrhythmia status post pacemaker. 2. Possibly chronic renal insufficiency. 3. History of anemia. 4. Dementia. Medications; reviewed. Allergies penicillin and sulfa drugs. Social history; patient never smoked. Family history; not available. Occupational history not available. Review of systems; not able to be obtained. Next General exam; elderly woman, on 100% nonrebreather mask. Appearing tachypneic. Awake but unresponsive to any commands. Past Medical History Medical History: congestive heart failure, coronary artery disease, GERD, GI bleed, renal disease Past Surgical History Past Surgical Hx: noncontributory Social History Alcohol Use: none Smoking Status: Never smoker Drug Use: none Exam/Review of Systems Vital Signs Vitals Vital Signs Date Time Temp Pulse Resp B/P Pulse Ox O2 Delivery O2 Flow Rate FiO2 02/13/17 08:15 115 26 02/13/17 08:00 95.6 117/60 100 Non Rebreather 02/13/17 08:00 15.0 02/12/17 10:11 21 Intake and Output 02/12/17 02/12/17 02/13/17 14:59 22:59 06:59 Intake Total 3420 ml 113 ml 558 ml Output Total 45 ml 30 ml Balance 3420 ml 68 ml 528 ml Exam HEENT exam; supple neck, positive JVD. No lymphadenopathy. Midline trachea. No thyromegaly. Patient has multiple carious teeth. Chest exam; diminished breath sounds throughout. S1-S2 audible, pansystolic murmur grade 2/6 best heard over mitral area. There is a pacemaker in left chest wall. Regular rhythm. Abdomen exam; soft, scaphoid. No organomegaly. Bowel sounds are sluggish. Extremity exam; 1+ generalized edema. With multiple ecchymosis involving all 4 extremities. [employer] exam; patient is awake but does not follow any commands. Results Result Diagram: 02/13/17 1050 02/13/17 1050 Results 24 hrs Laboratory Tests Test 02/12/17 12:55 02/12/17 14:40 02/13/17 09:00 02/13/17 10:50 Lactic Acid Level 4.1 *H 4.2 *H 6.2 *H Bedside Glucose 96 White Blood Count 8.5 # Red Blood Count 3.23 L Hemoglobin 9.8 L Hematocrit 31.2 L Mean Corpuscular Volume 96.6 Mean Corpuscular Hemoglobin 30.3 Mean Corpuscular Hemoglobin Concent 31.4 L Red Cell Distribution Width 21.0 H Platelet Count 60 #L Mean Platelet Volume 12.7 #H Neutrophils % Segmented Neutrophils % (Manual) 58 Band Neutrophils % (Manual) 30 H Lymphocytes % Lymphocytes % (Manual) 5 L Monocytes % Monocytes % (Manual) 2 Eosinophils % Basophils % Basophils % (Manual) 1 Metamyelocytes % (manual) 3 H Myelocytes % (Manual) 1 H Nucleated Red Blood Cells % 1 H Neutrophils # Neutrophils # (Manual) 5.1 Band Neutrophils # 2.5 H Absolute Lymphocytes (Manual) 0.4 L Lymphocytes # Monocytes # Absolute Monocytes (Manual) 0.1 L Eosinophils # Basophils # Basophils # (Manual) 0.0 Metamyelocytes # 0.2 H Myelocytes # 0.0 Nucleated Red Blood Cells # Platelet Estimate SIG DECREASED Polychromasia 3+ Poikilocytosis 3+ Anisocytosis 2+ Microcytosis 1+ Macrocytosis 1+ Sodium Level 148 H Potassium Level 3.4 L Chloride Level 122 H Carbon Dioxide Level Anion Gap 20 H Blood Urea Nitrogen 86 H Creatinine 2.90 H Glucose Level 370 #H Calcium Level 7.3 L Total Bilirubin 0.5 Direct Bilirubin 0.00 Indirect Bilirubin 0.5 Aspartate Amino Transf (AST/SGOT) 16 Alanine Aminotransferase (ALT/SGPT) 22 Alkaline Phosphatase 58 Total Protein 4.6 L Albumin 1.8 L Globulin 2.80 Albumin/Globulin Ratio 0.64 Medications Medications Current Medications Dextrose/Sodium Chloride (D5-NS) 1,000 ml @ 50 mls/hr Q20H IV Last administered on 02/12/17 20:10; Admin Dose 50 MLS/HR; Start 02/12/17 at 20:00 Miscellaneous Information This patient easley... PRN PRN XX WOUND CARE; Start at 20:30 Norepinephrine 32 mg/Dextrose 250 ml @ 0.46 mls/hr TITRATE IV Last administered on 02/13/17 04:06; Admin Dose 2.34 MLS/HR; Start 02/13/17 at 01: 30 Phenylephrine HCl 160 mg/Dextrose 500 ml @ 18.75 mls/ hr TITRATE IV Last administered on 02/13/17 12:30; Admin Dose 56.25 MLS/HR; Start 02/13/17 at 01 :30 Vasopressin/ Dextrose (Vasostrict/D5W) 60 ml @ 0 mls/hr Q12H IV Last administered on 02/13/17 10:56; Admin Dose 1.2 MLS/HR; Start 02/13/17 at 10: 00 Hydrocortisone 100 mg 100 mg Q8 IV Last administered on 02/13/17 12:01; Admin Dose 100 MG; Start 02/13/17 at 11:30 Cefepime HCl (Maxipime 2gm/50 ml (Pmx)) 50 ml @ 100 mls/hr Q12 IVPB ; Start at 23:59 Miscellaneous Information (*Rx Drug Level Order Reminder*) 1 ONCE ONCE XX ; Start 02/14/17 at 05:00; Stop 02/14/17 at 05:01 JOHN COCHRAN Feb 13, 2017 12:45
[2017-02-13] MEDS ORDERED: DOPamine 1,600 MG in DEXTROSE 5% 210 ML IV SCH (13:30)
[2017-02-13 13:32] LABS: Arterial Base Excess -21.4 mmol/L (-3.0-3); Arterial COHb 0.3 % (0.0-3.0); Arterial Fraction of Oxyhgb 98.3 % (93.0-99.0); Arterial HCO3 7.2 mmol/L (22.0-26.0); Arterial MetHb 0.4 % (0.0-1.5); Arterial Total Hemglobin 11.7 g/dl (12.0-18.0); MODE MASK - NRB
[2017-02-13] MEDS ORDERED: NA BICARBONATE 8.4% 50 ML SYG IV STA ×2 (13:32)
[2017-02-13] MEDS ORDERED: NA BICARBONATE 8.4% 50 ML SYG ONE ×2 (13:35)
--- NOTE | 2017-02-13 14:12 | CONS ---
DATE OF ADMISSION: 02/12/2017 DATE OF CONSULTATION: 02/13/2017 CARDIOLOGY CONSULT REASON FOR CONSULTATION: Hypotension shock state, history of atrial fibrillation. REQUESTING PHYSICIAN: Dr. Karli Hernández. HISTORY OF PRESENT ILLNESS: Ms. Coon is an 86-year-old female with a history of myelodysplastic syndrome, chronic kidney disease, thrombocytopenia, looks like persistent atrial fibrillation, perma nent pacemaker implantation ____ code at this time, presents from her chronic care facility with hyp oxemia, desaturation and hypotension. Initially upon arrival, temperature 99.6, blood pressure 66/3 4, pulse 60, respiratory rate 30, saturating 98%. The patient's labs revealed a white cell count of 3.5, hemoglobin 8.8, platelet count 46. Sodium 155, potassium 4.0, creatinine 3.45, BUN of 111, la ctic acid 3.7. AST 13, ALT 24. INR of 1.78. UA positive. Patient underwent a chest x-ray reveali ng cardiomegaly with calcified ____, central pulmonary vascular congestion, prominence both lungs, _ ___ cardiac opacity my reflect left atelectasis, right perihilar and lower lung infiltrates. The neo bauer's electrocardiogram revealed a rhythm, likely most consistent with atrial fibrillation at a ra te of 89, normal axis, normal intervals, nonspecific ST-T abnormalities. The patient admitted to e ICU and since admit to ICU, has required ongoing initiation of pressures and at this time is on Ne o-Synephrine,____ and has been added vasopressin. The patient monitored on telemetry revealing prob able episodes of recurrent atrial fibrillation and intermittent times of ventricular pacing. The neo bauer at this time is encephalopathic and not clearly responding to questions. PAST MEDICAL HISTORY: As above in HPI. MEDICATIONS CURRENTLY IN HOSPITAL: 1. Cefepime. 2. Hydrocortisone 10 mg IV q.8h. 3. Vasopressin 4. Vancomycin. 5. Levophed. 6. ____ IV fluid hydration at 50 mL an hour. ALLERGIES 1. PENICILLIN. 2. AMOXICILLIN AND SULFA. SOCIAL HISTORY: No tobacco, ETOH or illicit drug use. FAMILY HISTORY: No history of sudden cardiac or early CAD. REVIEW OF SYSTEMS: As above in HPI. CONSTITUTIONAL: No fevers, chills. PULMONARY: Shortness of breath. CARDIOVASCULAR: Atrial fibrillation, permanent pacemaker, congestive heart failure. GASTROINTESTINAL: No vomiting. GENITOURINARY: Renal failure. PSYCHIATRIC: No documented psych history. NEUROLOGIC: Dementia, encephalopathy. PHYSICAL EXAMINATION: VITAL SIGNS: Temperature of 95.6, blood pressure 117/60, pulse 117, respiratory rate 37, 100% on 15 liters nonrebreather. GENERAL: The patient is awake, confused. NECK: JVP approximately 9 cm water. CHEST: Upper airway chest rhonchorous sounds. HEART: Tachycardic, irregularly irregular rhythm, I/ systolic murmur. ABDOMEN: Positive bowel sounds, soft. EXTREMITIES: Pitting edema with chronic venous stasis changes in lower extremities and anasarca of patient's entire body. LABORATORY DATA: As above in HPI with most recently from today, white blood count 8.5, hemoglobin 9 .8, platelet count 60. Sodium 148, potassium 3.4, creatinine 2.9, BUN 86. Lactic acid 6.2. IMAGING STUDIES: As above in HPI. No further imaging studies for my review at this time. ECG: As above in HPI. No further electrocardiograms for my review at this time. IMPRESSION 1. Hypotension/shock state, likely septic. 2. Atrial fibrillation. 3. Abnormal electrocardiogram, assess for acute coronary syndrome. 4. Congestive heart failure, chest x-ray, question systolic versus diastolic, likely acute on chron ic. 5. Renal failure, likely acute on chronic. 6. Altered mental state, encephalopathy. 7. Thrombocytopenia. 8. Urinary tract infection. 9. Lactic acidosis. 10. Hypernatremia. 11. Anemia. RECOMMENDATIONS: 1. At this time, the patient should be maintained NICU on ICU monitoring. 2. We will continue the patient's broad-spectrum antibiotics and follow up all culture data. 3. Continue the patient's pressor support with vasopressin and norepinephrine and Danyel-Synephrine at this time with possible need for additional pressor support. 4. Will give the patient albumin, and give IV fluid as possible but follow respiratory status close ly, possible need for intubation. 5. Continue the patient's stress dose steroids at this time. 6. Check a 2D echocardiogram to further assess patient's ejection fraction, wall motion and any derick or valve abnormalities. 7. Would check serial EKGs, assess for any significant ongoing changes. EKG in the morning, EKG fo r complaints of chest pain or change in rhythm. 8. Do not place the patient any further anticoagulation at this time given thrombocytopenia and pat [facility] is auto anticoagulated with INR of 1.78 and thus will follow that and recheck it today. We imelda l check a TSH to be certain for any subclinical hyperthyroidism, exchanged bouts of cardiac arrhythm ias this time tachycardia in addition to pressure support hypertension. Thank you for allowing me to take part in the care of this patient. I will continue to follow very closely with you with further recommendations to be made as the patient progresses through his [facility] clinical course. Dictated By: RUSTY CASTAÑEDA/ERICKA Conf#: [id number] DID#: [id number] CC: KARLI HERNÁNDEZ MD;*EndCC*
[2017-02-13 15:21] LABS: ABNORMAL IP MESSAGE 1; HEMATOCRIT 32.8 % (37.0-47.0); HEMOGLOBIN 10.4 g/dl (12.0-16.0); MEAN CORPUSCULAR HEMOGLOBIN 30.3 pg (29.0-33.0); MEAN CORPUSCULAR HGB CONC 31.7 g/dl (32.0-37.0); MEAN CORPUSCULAR VOLUME 95.6 fl (82.0-101.0); MEAN PLATELET VOLUME 11.6 fl (7.4-10.4); NUCLEATED RED BLOOD CELLS% 0.5 /100WBC (0.0-0.0); PLATELET COUNT 66 10^3/UL (140-415); RED BLOOD COUNT 3.43 10^6/ul (4.20-5.40); RED CELL DISTRIBUTION WIDTH 21.1 % (11.5-14.5); WHITE BLOOD COUNT 8.6 10^3/ul (4.8-10.8)
[2017-02-13 15:25] LABS: POSITIVE DIFF @See below
[2017-02-13 15:48] LABS: ALBUMIN/GLOBULIN RATIO 0.71; BILIRUBIN,INDIRECT 0.5 mg/dl (0-1.1); BILIRUBIN,TOTAL 0.5 mg/dl (0.2-1.3); CREATININE 3.31 mg/dl (0.44-1.00); POTASSIUM 3.7 mmol/L (3.5-5.1); TOTAL PROTEIN 4.8 g/dl (6.1-8.1)
[2017-02-13] MEDS: DEXTROSE 5%-0.9% NACL 1,000 ML IV SCH (16:12)
[2017-02-13] MEDS: SODIUM BICARBONATE (IV ADD) 100 MEQ in DEXTROSE 5% 1,000 ML IV SCH (16:12)
[2017-02-13 16:53] LABS: ANISOCYTOSIS 3+ (0-0); BURR CELLS 3+ (0-0); GIANT THROMBO% (M) 1 % (0-0); MICROCYTOSIS 2+ (0-0); MONOCYTES % (M) 14 % (0-11); PLATELET ESTIMATE DECREASED; POIKILOCYTOSIS 3+ (0-0)
[2017-02-13] MEDS ORDERED: CEFEPIME 2GM/50 ML (PMX) 50 ML IVPB SCH ×2 (19:00→23:59)
[2017-02-13 19:51] LABS: CK-MB 7.62 ng/ml (0.0-2.4)
[2017-02-13 19:57] LABS: TROPONIN-I 0.311 ng/ml (0.00-0.12)
--- NOTE | 2017-02-13 20:28 | RADRPT ---
Echocardiogram Report ADDENDUM Patient Name: ROBERT LYNN Gender: Female Date: 1930 Study Date: 13-Feb-2017 Mattress Weaver: STEVE Location: 107 Ref. Physician: RUSTY FRANKLIN Quality: Good Procedures: Transthoracic echocardiogram with complete 2D, M-Mode, and doppler examination. Indications: Hypotension. 2D/M Mode Doppler Measurement Value Normal Ranges Measurement Value Normal Ranges AoR Diam MM 2.6 cm [place] Vmax 2.1 cm2 LA/Ao MM 1.9 [place] VTI 2.1 cm2 LA Dimen MM 4.9 cm AV Mean Tuan 1.0 m/sec LVIDd 2D 3.8 3.5 - 5.6 cm AV Mean PG 4.3 mmHg LVIDs 2D 2.9 2.1 - 4.1 cm AV Peak Tuan 1.6 m/sec LVPWd 2D 1.1 0.6 - 1.1 cm AV Peak PG 10.0 mmHg IVSd 2D 1.1 0.6 - 1.1 cm AV VTI 18.7 cm EDV 2D 62.8 cm3 LVOT Peak Tuan 1.1 m/sec ESV 2D 24.0 cm3 LVOT Peak PG 4.5 mmHg EF 2D 50.0 50.0 - 65.0 % MV E Peak Tuan 1.5 m/sec LVOT Diam 2.0 cm MV A Peak Tuan 0.5 m/sec MV E/A 2.8 MV Decel Time 161 msec MV Decel [place] 9 MV E/A 2.8 TR Peak Tuan 4.7 m/sec TR Peak PG 88.0 mmHg RVSP 103.0 mmHg RA Pressure 15.0 Findings Left Ventricle: Normal left ventricular cavity size. Normal left ventricular wall thickness. Mild left ventricular systolic dysfunction. Ejection fraction is visually estimated at 40 %. Abnormal Diastolic Function. Hypokinetic anterior and septal LV wall motion noted. Right Ventricle: Mild-Moderate enlargement of right ventricle. Mild right ventricular hypokinesis. Left Atrium: There is severe enlargement of left atrium. Right Atrium: There is severe enlargement of right atrium. Mitral Valve: Anterior Mitral valve leaflet appear mildly thickened. Mild posterior mitral leaflet calcification. Moderate mitral annular calcification. Mild to moderate mitral valve regurgitation. The regurgitation jet is eccentrically directed which may underestimate the severity of mitral regurgitation. Aortic Valve: No significant aortic stenosis or insufficiency. Aortic cusps appear mildly calcified. Trace aortic valve regurgitation. Tricuspid Valve: Normal appearance of the tricuspid valve. Estimated peak PA systolic pressure 103 mmHg. There is severe tricuspid regurgitation. Pulmonic Valve: Normal pulmonic valve appearance. There is mild to moderate pulmonic regurgitation. Pericardium: Trivial pericardial effusion. Pleural effusion seen. Aorta: Normal aortic root. IVC: Dilated IVC without respiratory collapse consistent with elevated right atrial pressure. Conclusions 1.Normal left ventricular cavity size. Normal left ventricular wall thickness. Mild left ventricular systolic dysfunction. Ejection fraction is visually estimated at 40 %. Abnormal Diastolic Function. Hypokinetic anterior and septal LV wall motion noted. 2.Mild-Moderate enlargement of right ventricle. Mild right ventricular hypokinesis. 3.There is severe enlargement of left atrium. 4.There is severe enlargement of right atrium. 5.Mild to moderate mitral valve regurgitation. The regurgitation jet is eccentrically directed which may underestimate the severity of mitral regurgitation. 6.Trace aortic valve regurgitation. 7.Estimated peak PA systolic pressure 103 mmHg. There is severe tricuspid regurgitation. 8.Normal pulmonic valve appearance. There is mild to moderate pulmonic regurgitation. 9.Trivial pericardial effusion. Pleural effusion seen. Electronically Signed By: Rusty Franklin 13-Feb-2017 20:36:16 -0800 [ADDENDUM] Patient Name: ROBERT LYNN Study Date: 13-Feb-2017 [id number]
[2017-02-14] VITALS (24 sets, daily range): BP systolic 56–102; BP diastolic 21–69; PULSE 0–106; RESP 0–31
[2017-02-14] MEDS: SODIUM BICARBONATE (IV ADD) 100 MEQ in DEXTROSE 5% 1,000 ML IV SCH (04:01)
[2017-02-14 04:25] LABS: CK-MB 10.6 ng/ml (0.0-2.4)
[2017-02-14 04:34] LABS: TROPONIN-I 0.634 ng/ml (0.00-0.12)
[2017-02-14] MEDS ORDERED: DOPamine-D5W 1.6 MG/ML 250 ML ONE (05:24)
[2017-02-14] MEDS ORDERED: DOPamine-D5W 1.6 MG/ML 250 ML IV SCH (05:30)
[2017-02-14] MEDS: HYDROCORTISONE 100 MG INJ IV SCH (06:01)
[2017-02-14 06:36] LABS: CK-MB 12.7 ng/ml (0.0-2.4)
[2017-02-14 06:39] LABS: TROPONIN-I 0.81 ng/ml (0.00-0.12)
--- NOTE | 2017-02-14 06:52 | PN ---
DATE: 02/13/2017 WORKING DIAGNOSES: 1. Sepsis. 2. Acute respiratory failure. 3. Acute renal failure. 4. Shock, possible septic shock. 5. Vascular dementia, myelodysplastic disorder. 6. Anemia. SUMMARY: The patient is an 86-year-old female admitted yesterday from the [facility] secondary to her hypotension with septic shock. She is on maximum vasopressor. Patient in ICU now and stable, O2 mask and IV fluid, and n.p.o. Patient's lab results came back with her lactic acid, was 4.1 yest erday, jumped to 6.2, and then her kidney failure shows BUN 86, was 111 yesterday, and creatinine wa s 3.5, and now creatinine is 2.9 and BUN is 86. IV fluid and vasopressor and supportive artemio ure. Calcium was low at 7.3. Total protein 4.6. Sodium 148, chloride 122, elevated. The patient to be seen by Dr. Pack in nephrology consult to monitor her electrolytes and kidney failure. CBC showed WBC 8.5, hemoglobin was 8.8, now went up to 9.8, and then her platelet count 60, low and the differential count is noted. The patient had blood gas, shows pH 7.07, acidotic, CO2 of 25, low an d O2 . Urine was bacteria moderate, glucose negative. Coagulation: INR is 1.78. Patient had an x-ray which was done yesterday, which shows vascular congestion and interstitial prominence in b oth lungs with left lobe atelectasis. Consider ICU now and in stable condition. MEDICATIONS: Currently, patient on: 1. Cefepime 100 mL an hour q.12 hours IV piggyback. 2. Sodium bicarbonate for metabolic acidosis. 3. Dopamine. 4. Hydrocortisone, Solu-Cortef q.8 hours IV, 100 mg. 5. Vasopressin q.12 hours. 6. Vancomycin per protocol for positive blood culture. 7. Norepinephrine. 8. . 9. Dextrose sodium chloride 50 mL an hour hours. PHYSICAL EXAMINATION: GENERAL: The patient is awake, confused, aphasic, calm, 86 female. VITAL SIGNS: For today, shows temperature 95.6 and pulse 115, respiratory 26, blood pressure went u p to 117/60, pulse ox is 100%. HEENT: Head normocephalic, atraumatic. Pupils equal, react to light, unable to do accommodation, p atient does not follow commands. Throat clear. No sign of infection seen. Patient n.p.o. NECK: Supple, trachea central, no thyroid enlargement, no cervical lymphadenopathy. Carotid pulse normal. No jugular venous distention. CHEST: Normal contour. Normal inspiration and expiration. LUNGS: Scattered rhonchi, both sides. . HEART: Regular sinus rhythm with pacemaker, and Dr. Franklin and cardiology consult are in progress. ABDOMEN: Umbilicus central. No organomegaly. No tenderness or rebound tenderness. Bowel sounds p ositive. GENITOURINARY: External genitalia within normal limits. Hill catheter in for fluid balance. Oral intake was 4091, and output was 75. Scanty urine and balance is positive. EXTREMITIES: Upper and lower extremities, multiple subcutaneous hematoma, ecchymosis, abrasion uppe r and lower extremities secondary to thrombocytopenia. Care in progress. Contracted extremities. Muscle weakness. NEUROLOGICAL: Patient awake, obtunded, confused, aphasic, demented, calm, not having pain. Cranial nerves grossly within normal limits. The patient not cooperative, and peripheral nerves, patient a ble to respond to physical stimuli only by withdrawing her extremities. Deep tendon reflexes 2+. S ensation, hypoesthesia in the lower extremities. PLAN: Patient's condition stabilized. I discussed her condition with the consultants, with Dr. Brittani sanchez, Dr. Wood, Dr. Pack. We will follow up. PROGNOSIS: Poor. CODE STATUS: CHEMICAL CODE ONLY. Dictated By: LUZ MARIA MCDERMOTT/ERICKA Conf#: [id number] DID#: [id number]
[2017-02-14] MEDS ORDERED: VANCOMYCIN 1.25 GM in DEXTROSE 5% 250 ML IVPB SCH (11:30)
--- NOTE | 2017-02-14 22:55 | EN ---
Date/Time of Note Date/Time of Note DATE: 02/14/17 TIME: 22:52 ER Progress Note The patient is a 86-year-old female, in ICU for sepsis. She is a chemical code only. She went to a systole of around 0 5:36 AM, Accu-Chek was low, she was treated with 1 amp D50 IV. She was treated with epinephrine 1 mg IV 3 approximately 5- 10 minutes apart due to a systole. The coded ended about 06:20 am when she was pronounced. PHONG PISANO MD Feb 14, 2017 22:55
--- NOTE | 2017-02-15 06:01 | DS ---
DATE OF ADMISSION: 02/12/2017 DATE OF DISCHARGE: 02/14/2017 ADMITTING DIAGNOSES: 1. Acute encephalopathy. 2. Acute respiratory failure. 3. Acute renal failure. 4. Acute pleural effusion. 5. Sepsis. 6. Aphagia. 7. Hypotension. 8. Dementia. 9. Cardiomyopathy with pacemaker. DISCHARGE DIAGNOSES: 1. Acute cardiopulmonary arrest. 2. Acute renal failure. 3. Acute myocardial infarction. 4. Acute cardiomyopathy with failure. 5. Pleural effusion. 6. Septic shock. 7. Myelodysplastic disorder. 8. Consuelo demential. SUMMARY: The patient is an 86-year-old female admitted to the hospital secondary to acute encephalo joni with desaturation. The patient was no intubation, but only CHEMICAL CODE. The patient went to ICU. Consultation with Dr. Franklin in cardiology consult and Dr. Pack in nephrology consult. The patient had cardiac exam done and her shows troponin was 0.31, went up to 0.6 and 0.8. Her CK- MB was 7.61 and 12.7. Her labs shows on admission her BUN was 111, and creatinine 0.45, and then th e carbon dioxide low with severe acidosis. Then protein was 4.1, and sodium was 155, chloride 122. Her BUN with fluid hydration went up to 89, creatinine 3.31, sodium 154, and chloride 123 with carb on dioxide went up to 97 acidotic, with a lactic acid level 6.2. CBC showed WBC at date of wa s 8.6, hemoglobin 10.4. The patient had microbiology shows MRSA negative, but is E. coli with yeast infection and gram positive cocci. It should be noted that it is sensitive to cefazolin. Th e patient already on cefepime and then gentamycin and tobramycin. Chest x-ray on admission shows ca rdiomegaly with calcified in the aorta, vascular congestion both lungs and a small pleural eff usion, right bihilar lower lung infiltrates with moderate pleural effusion. The patient was on vaso pressor for blood pressure low, and then her blood pressure at this point was pulse 60 and respirati on 113, and blood pressure dropped to 56/36 and then went up to 81/28 and respiration dropped down t o 68 with maximum vasopressor. The patient's condition worsening and she and family informe d. Body to release on outside. CERTIFICATE: expected significant multiple organ failure. Dictated By: LUZ MARIA MCDERMOTT/ERICKA Conf#: [id number] DID#: [id number]
== END 2017-02-14 09:15 | disposition expired | DRG 871 ==
LOC: E/R 09:09 → TEL 09:54 → ICU 17:37
PROVIDERS: ADMIT Family Medicine; ATTEND Family Medicine
DX: A41.50 Gram-negative sepsis, unspecified (principal); R65.21 Severe sepsis with septic shock; I21.9 Acute myocardial infarction, unspecified; J96.00 Acute respiratory failure, unspecified whether with hypoxia or hypercapnia; G93.49 Other encephalopathy; N17.9 Acute kidney failure, unspecified; C94.6 Myelodysplastic disease, not elsewhere classified; I42.9 Cardiomyopathy, unspecified; N39.0 Urinary tract infection, site not specified; D61.818 Other pancytopenia; E87.2 Acidosis; I46.9 Cardiac arrest, cause unspecified; A41.89 Other specified sepsis; J44.9 Chronic obstructive pulmonary disease, unspecified; E78.5 Hyperlipidemia, unspecified; I50.9 Heart failure, unspecified; E03.9 Hypothyroidism, unspecified; Z66 Do not resuscitate; K74.60 Unspecified cirrhosis of liver; E86.0 Dehydration; F01.50 Vascular dementia, unspecified severity, without behavioral disturbance, psychotic disturbance, mood disturbance, and anxiety; Z95.0 Presence of cardiac pacemaker; I13.10 Hypertensive heart and chronic kidney disease without heart failure, with stage 1 through stage 4 chronic kidney disease, or unspecified chronic kidney disease; N18.9 Chronic kidney disease, unspecified; M81.0 Age-related osteoporosis without current pathological fracture; I25.10 Atherosclerotic heart disease of native coronary artery without angina pectoris; R13.10 Dysphagia, unspecified; M19.90 Unspecified osteoarthritis, unspecified site; N39.41 Urge incontinence; K27.9 Peptic ulcer, site unspecified, unspecified as acute or chronic, without hemorrhage or perforation; M10.9 Gout, unspecified; Z87.440 Personal history of urinary (tract) infections
CPT/HCPCS: 36600; 71010; 80053; 80202; 81001; 82550; 82553; 82803; 82962; 83605; 83690; 84443; 84484; 85025; 85610; 85730; 86850; 86900; 86901; 87040; 87081; 87086; 93306; 94644; 94660; 96374; 96375; J0171; J0610; J0692; J1265; J1720; J2370; J3010; J3370; J7030; J7042; J7060; J7070